=== PATIENT | male | born 1945 | race Caucasian/White ===

== ENCOUNTER 2016-07-06 21:28 | Inpatient (IN) | payer BC, MEDICARE ==
[~2016-07-06] VITALS: Ht 182.9 cm; Wt 112.8 kg
[2016-07-06 21:32] VITALS: BP 133/74; PULSE 104; RESP 20; TEMP 97.7; O2SAT 94
[2016-07-06 21:51] VITALS: BP 101/63; PULSE 114; RESP 20; O2SAT 97
[2016-07-06] MEDS ORDERED: SODIUM CHLORIDE 0.9% FLUSH 5 ML FLUSH IVF PRN (22:00)
--- NOTE | 2016-07-06 22:05 | PD ---
HPI Chief Complaint: Cardiac Complaint Time Seen by Provider: 21:58 Travel History International Travel<30 days: No Contact w/Intl Traveler<30days: No Traveled to known affect area: No History of Present Illness HPI 70-year-old male presents to the emergency department for complaint of abdominal pressure 3-4/10 in intensity and shortness of breath. Patient has history of atrial fibrillation which she states is been well-controlled for the past 5 years but has been present for the past 2 weeks. Patient takes Coumadin daily. Patient denies chest pain. Patient has had shortness of breath. Patient's rotary peel oven tender is Dr. Akbar. Patient was seen by his rotary peel oven tender today for an echocardiogram. Patient also had a PET scan today. Patient has history of peripheral vascular disease with previous stenting of lower extremities bilaterally. Patient's last cardiac catheterization was May 2015 and reportedly had better looking coronary vessel disease than on previous cardiac catheterization according to the . Patient denies history of dyslipidemia hypertension or diabetes. Patient denies chest pain. Chest discomfort is 0/10 in intensity. No recent respiratory illness or febrile illness. No thyroid dysfunction. Patient does not report any referred neck jaw back shoulder arm lower back or lower extremity numbness tingling weakness pain or discomfort. PFSH Past Medical History Narrative Medical CAD atrial fibrillation Coumadin therapy Hx Anticoagulant Therapy: Yes (COUMADIN) Social History Tobacco Use: No Allergies-Medications (Allergen,Severity, Reaction): Coded Allergies: No Known Allergies (Unverified , 07/06/16) Comments Patient denies any medication allergies Reported Meds & Prescriptions Reported Meds & Active Scripts Active Reported Pravastatin 40 Mg Tab 40 Mg PO DAILY Amlodipine (Amlodipine Besylate) 10 Mg Tab 10 Mg PO DAILY Losartan (Losartan Potassium) 50 Mg Tab 50 Mg PO DAILY Coumadin (Warfarin) 6 Mg Tab 6 Mg PO DAILY Amoxicillin-Clavulanate 875-125 mg Tab 875 Mg PO BID not for use in CrCl <30 mL/minute Sotalol (AF) (Sotalol (Afib/Afl)) 80 Mg Tab 80 Mg PO BID Narrative Medication Coumadin Review of Systems Except as stated in HPI: all other systems reviewed are Neg Physical Exam Narrative GENERAL: Well-developed well-nourished male in no acute distress no respiratory distress SKIN: Warm and dry. HEAD: Normocephalic. EYES: No scleral icterus. No injection or drainage. NECK: Supple, trachea midline. No JVD or lymphadenopathy. CARDIOVASCULAR: Increased irregular irregular rate and rhythm without murmurs, gallops, or rubs. RESPIRATORY: Breath sounds equal bilaterally. No accessory muscle use. GASTROINTESTINAL: Abdomen soft, non-tender, nondistended. MUSCULOSKELETAL: No cyanosis, or trace to 1+ pitting pedal lower pretibial edema. Radial dorsalis pedis pulses 2+ to palpation bilaterally BACK: Nontender without obvious deformity. No CVA tenderness. Data Data Last Documented VS Vital Signs Date Time Temp Pulse Resp B/P Pulse Ox O2 Delivery O2 Flow Rate FiO2 07/07/16 00:41 94 20 138/82 98 07/06/16 22:12 Nasal Cannula 2 07/06/16 21:32 97.7 Orders Complete Blood Count With Diff (07/06/16 21:58) Comprehensive Metabolic Panel (07/06/16 21:58) B-Type Natriuretic Peptide (07/06/16 21:58) Act Partial Throm Time (Ptt) (07/06/16 21:58) Prothrombin Time / Inr (Pt) (07/06/16 21:58) Magnesium (Mg) (07/06/16 21:58) Ckmb (Isoenzyme) Profile (07/06/16 21:58) Troponin I (07/06/16 21:58) Iv Access Insert/Monitor (07/06/16 21:58) Electrocardiogram (07/06/16 21:58) Ecg Monitoring (07/06/16 21:58) Oximetry (07/06/16 21:58) Oxygen Administration (07/06/16 21:58) Chest, Single Ap (07/06/16 21:58) Sodium Chloride 0.9% Flush (Ns Flush) (07/06/16 22:00) Type And Screen (07/06/16 21:58) Bilateral Bp Monitoring (07/06/16 21:58) Cta Thor Abd Aorta W Iv C W3d (07/06/16 21:58) Iohexol 350 Inj (Omnipaque 350 Inj) (07/06/16 23:36) Urinalysis - C+S If Indicated (07/07/16 00:18) Potassium Chloride (Kcl) (07/07/16 00:30) Admit Order (Ed Use Only) (07/07/16 ) ^ Saline Lock (07/07/16 00:41) Resp Oxygen Alvarado C Titrat 1-4 L (07/07/16 ) ^ Notify Dr: Other (07/07/16 00:41) Sodium Chloride 0.9% Flush (Ns Flush) (07/07/16 09:00) Sodium Chloride 0.9% Flush (Ns Flush) (07/07/16 00:45) Labs Laboratory Tests Test 07/06/16 22:06 White Blood Count 12.0 TH/MM3 Red Blood Count 3.96 MIL/MM3 Hemoglobin 12.9 GM/DL Hematocrit 38.0 % Mean Corpuscular Volume 96.0 FL Mean Corpuscular Hemoglobin 32.6 PG Mean Corpuscular Hemoglobin 34.0 % Concent Red Cell Distribution Width 13.5 % Platelet Count 282 TH/MM3 Mean Platelet Volume 8.8 FL Neutrophils (%) (Auto) 73.7 % Lymphocytes (%) (Auto) 17.2 % Monocytes (%) (Auto) 7.0 % Eosinophils (%) (Auto) 1.5 % Basophils (%) (Auto) 0.6 % Neutrophils # (Auto) 8.8 TH/MM3 Lymphocytes # (Auto) 2.1 TH/MM3 Monocytes # (Auto) 0.8 TH/MM3 Eosinophils # (Auto) 0.2 TH/MM3 Basophils # (Auto) 0.1 TH/MM3 CBC Comment DIFF FINAL Differential Comment Prothrombin Time 37.7 SEC Prothromb Time International 3.2 RATIO Ratio Activated Partial 39.7 SEC Thromboplast Time Sodium Level 144 MEQ/L Potassium Level 3.3 MEQ/L Chloride Level 108 MEQ/L Carbon Dioxide Level 27.6 MEQ/L Anion Gap 8 MEQ/L Blood Urea Nitrogen 20 MG/DL Creatinine 0.93 MG/DL Estimat Glomerular Filtration 80 ML/MIN Rate Random Glucose 127 MG/DL Calcium Level 7.9 MG/DL Magnesium Level 2.2 MG/DL Total Bilirubin 0.5 MG/DL Aspartate Amino Transf 13 U/L (AST/SGOT) Alanine Aminotransferase 32 U/L (ALT/SGPT) Alkaline Phosphatase 57 U/L Total Creatine Kinase 48 U/L Troponin I LESS THAN 0.02 NG/ML B-Type Natriuretic Peptide 401 PG/ML Total Protein 6.8 GM/DL Albumin 3.4 GM/DL Blood Type A NEGATIVE Antibody Screen NEGATIVE Blood Bank Comment MDM Medical Decision Making Medical Screen Exam Complete: Yes Emergency Medical Condition: Yes Medical Record Reviewed: Yes Interpretation(s) EKG: Atrial fibrillation with rapid ventricular response and left bundle branch block pattern Last Impressions Chest X-Ray 07/06/162157 Signed Impressions: Service Date/Time: Wednesday, July 06, 2016 22:13 - CONCLUSION: 1. Minimal basilar atelectasis. Edison Finch MD Aorta CTA 07/06/162157 Signed Impressions: Service Date/Time: Wednesday, July 06, 2016 23:19 - CONCLUSION: 1. No evidence of aortic dissection or aneurysmal dilatation. 2. Atherosclerotic changes are seen throughout the aorta. 3. A few nonspecific nodules in the right lobe of the thyroid. 4. Bilateral iliac vein stents. 5. Bullous emphysema with a very small right effusion versus pleural thickening. Dominguez Valenzuela MD Laboratory Tests Test 07/06/16 22:06 White Blood Count 12.0 TH/MM3 Red Blood Count 3.96 MIL/MM3 Hemoglobin 12.9 GM/DL Hematocrit 38.0 % Mean Corpuscular Volume 96.0 FL Mean Corpuscular Hemoglobin 32.6 PG Mean Corpuscular Hemoglobin 34.0 % Concent Red Cell Distribution Width 13.5 % Platelet Count 282 TH/MM3 Mean Platelet Volume 8.8 FL Neutrophils (%) (Auto) 73.7 % Lymphocytes (%) (Auto) 17.2 % Monocytes (%) (Auto) 7.0 % Eosinophils (%) (Auto) 1.5 % Basophils (%) (Auto) 0.6 % Neutrophils # (Auto) 8.8 TH/MM3 Lymphocytes # (Auto) 2.1 TH/MM3 Monocytes # (Auto) 0.8 TH/MM3 Eosinophils # (Auto) 0.2 TH/MM3 Basophils # (Auto) 0.1 TH/MM3 CBC Comment DIFF FINAL Differential Comment Prothrombin Time 37.7 SEC Prothromb Time International 3.2 RATIO Ratio Activated Partial 39.7 SEC Thromboplast Time Sodium Level 144 MEQ/L Potassium Level 3.3 MEQ/L Chloride Level 108 MEQ/L Carbon Dioxide Level 27.6 MEQ/L Anion Gap 8 MEQ/L Blood Urea Nitrogen 20 MG/DL Creatinine 0.93 MG/DL Estimat Glomerular Filtration 80 ML/MIN Rate Random Glucose 127 MG/DL Calcium Level 7.9 MG/DL Magnesium Level 2.2 MG/DL Total Bilirubin 0.5 MG/DL Aspartate Amino Transf 13 U/L (AST/SGOT) Alanine Aminotransferase 32 U/L (ALT/SGPT) Alkaline Phosphatase 57 U/L Total Creatine Kinase 48 U/L Troponin I LESS THAN 0.02 NG/ML B-Type Natriuretic Peptide 401 PG/ML Total Protein 6.8 GM/DL Albumin 3.4 GM/DL Blood Type A NEGATIVE Antibody Screen NEGATIVE Blood Bank Comment Differential Diagnosis Dyspnea, CHF, atrial fibrillation with RVR, ACS, OH, aortic dissection, Coumadin coagulopathy, aneurysm Narrative Course Patient placed on front desk monitor IV access obtained supplemental oxygen administered; patient with marked blood pressure variance right arm to left arm. Patient resting comfortably voicing no concerns or complaints denies any shortness of breath at this time atrial fibrillation is intermittently with RVR but primarily remains with a controlled rate CT performed without evidence of dissection or aneurysm or acute process Patient's case discussed with on-call medicine for observation admission for serial cardiac enzymes Patient agreeable to observation stay Physician Communication Physician Communication discussed with [facility] service MD --will admit to their service as OBS Diagnosis Primary Impression: Atrial fibrillation Qualified Code: I48.0 - Paroxysmal atrial fibrillation Additional Impression: Chronic coronary artery disease Admitting Information Admitting Physician Requests: Observation Heather Garcia MD Jul 06, 2016 22:05
[2016-07-06 22:10] VITALS: BP 104/78; PULSE 114; RESP 20; O2SAT 98
[2016-07-06 22:12] VITALS: BP_SYST 104; BP_SYST 135; BP_DIAS 78; BP_DIAS 84; PULSE 114; RESP 20; O2SAT 98
[2016-07-06] MEDS ORDERED: PRAV40TA2 PO (22:23)
[2016-07-06] MEDS ORDERED: AMLO10TA2 PO (22:23)
[2016-07-06] MEDS ORDERED: SOTA80TA6 PO (22:23)
[2016-07-06] MEDS ORDERED: LOSA50TA PO (22:23)
[2016-07-06] MEDS ORDERED: COUM6TAB PO (22:23)
[2016-07-06] MEDS ORDERED: AMOX875T2 PO (22:23)
[2016-07-06 22:28] LABS: AUTOMATED NEUTROPHIL # 8.8 TH/MM3 (1.8-7.7); BASOPHIL # 0.1 TH/MM3 (0-0.2); BASOPHIL % 0.6 % (0.0-2.0); EOSINOPHIL # 0.2 TH/MM3 (0-0.4); EOSINOPHIL % 1.5 % (0.0-4.0); HEMO FLAGS DIFF FINAL; LYMPH % 17.2 % (9.0-44.0); LYMPHOCYTE # 2.1 TH/MM3 (1.0-4.8); MEAN CORPUSCULAR HEMOGLOBIN 32.6 PG (27.0-34.0); NEUT % 73.7 % (16.0-70.0); PLATELET COUNT 282 TH/MM3 (150-450); RED BLOOD COUNT 3.96 MIL/MM3 (4.50-5.90); RED CELL DISTRIBUTION WIDTH 13.5 % (11.6-17.2)
[2016-07-06 22:32] LABS: CHLORIDE 108 MEQ/L (98-107); POTASSIUM 3.3 MEQ/L (3.5-5.1); SODIUM (NA) 144 MEQ/L (136-145)
[2016-07-06 22:37] LABS: ANION GAP 8 MEQ/L (5-15); BICARBONATE 27.6 MEQ/L (21.0-32.0); BLOOD UREA NITROGEN 20 MG/DL (7-18); MAGNESIUM 2.2 MG/DL (1.5-2.5)
[2016-07-06 22:38] LABS: APTT (PATIENT) 39.7 SEC (24.3-30.1); INTERNATIONAL NORMALIZED RATIO 3.2 RATIO; PROTHROMBIN TIME - PATIENT 37.7 SEC (9.8-11.6)
[2016-07-06 22:39] LABS: ALT (GPT) 32 U/L (12-78)
[2016-07-06 22:40] LABS: AST (GOT) 13 U/L (15-37); GLOMERULAR FILTRATION RATE 80 ML/MIN (>89)
[2016-07-06 22:41] LABS: TOTAL BILIRUBIN ADULT 0.5 MG/DL (0.2-1.0)
[2016-07-06 22:42] VITALS: BP 137/91; PULSE 114; RESP 20; O2SAT 98
[2016-07-06 22:42] LABS: ALKALINE PHOSPHATASE 57 U/L (45-117)
--- NOTE | 2016-07-06 22:53 | RADHPO ---
EXAM DATE/TIME: 07/06/2016 22:13 [facility] COMPARISON: No previous studies available for comparison. INDICATIONS : Atrial fibrillation MEDICAL HISTORY : Atrial fibrillation SURGICAL HISTORY : None. ENCOUNTER: Initial ACUITY: 1 week PAIN SCORE: 2/10 LOCATION: Bilateral chest FINDINGS: A single view of the chest demonstrates minimal basilar and dependent atelectasis. No effusion. No pn eumothorax. The cardiomediastinal contours are unremarkable. Osseous structures are intact. CONCLUSION: 1. Minimal basilar atelectasis. Edison Finch MD on July 06, 2016 at 22:51 Board Certified Radiologist. This report was verified electronically.
[2016-07-06 22:54] LABS: CREATINE KINASE 48 U/L (39-308)
[2016-07-06 23:12] VITALS: BP 149/81; PULSE 61; RESP 20; O2SAT 98
[2016-07-06] MEDS ORDERED: IOHEXOL 350 MG/ML 10 ML VIAL (for RAD DIAG) IV ONE (23:36)
[2016-07-07] VITALS (17 sets, daily range): BP systolic 92–145; BP diastolic 66–90; PULSE 70–115; RESP 16–20; TEMP 96.2–97.6; O2SAT 94–99
--- NOTE | 2016-07-07 00:15 | RADHPO ---
EXAM DATE/TIME: 07/06/2016 23:19 [facility] COMPARISON: No previous studies available for comparison. INDICATIONS : Evalaute for aortic dissection. IV CONTRAST: 100 cc Omnipaque 350 (iohexol) IV RADIATION DOSE: 22.57 CTDIvol (mGy) MEDICAL HISTORY : Hypertension. Atrial fibrilation. SURGICAL HISTORY : Illiac vein stent. ENCOUNTER: Initial ACUITY: 1 day PAIN SCALE: 0/10 LOCATION: chest Abdomen. TECHNIQUE: Volumetric scanning was performed using a multi-row detector CT scanner. The data was post processed with a variety of visualization algorithms including full volume maximum intensity projection, multi -planar sliding thin slab reformation, curved planar reformation, and surface rendering techniques. Using automated exposure control and adjustment of the mA and/or kV according to patient size, radiat ion dose was kept as low as reasonably achievable to obtain optimal diagnostic quality images. FINDINGS: LUNGS: There is bullous emphysema in both apices. No acute pulmonary infiltrates are seen. There is some ple ural thickening versus small effusion in the right lung base. MEDIASTINUM: No abnormally enlarged lymph nodes by CT criteria. No axillary or hilar abnormalities are identified. A few nonspecific nodules are noted in the right thyroid gland. ABDOMEN: The liver and spleen are free of focal defects. The gallbladder and pancreas demonstrate no abnormali ty. The adrenal glands are normal. The kidneys demonstrate no evidence of solid renal mass or hydrone phrosis. No free fluid or abdominal masses are identified. No para-aortic adenopathy is seen. PELVIS: No evidence of free fluid or pelvic mass. No abnormally enlarged inguinal or retroperitoneal lymph no matthew are present. The bladder is unremarkable. Bilateral stents are noted in the iliac veins. THORACIC AORTA: The thoracic aortic root is normal with normal branching of the great vessels. There is no evidence of aneurysm or dissection. A few small calcified plaques are noted. ABDOMINAL AORTA: The aorta is normal in caliber without aneurysm or dissection. A few small calcified plaques are demo nstrated. The renal arteries are patent bilaterally. The proximal celiac and superior mesenteric ar teries are patent and normal in diameter. PELVIC VESSELS: The internal iliac and external iliac vessels are patent with some atherosclerotic changes bilaterall y. No significant stenosis or segmental occlusion. Primary degenerative changes of the bony structures.. CONCLUSION: 1. No evidence of aortic dissection or aneurysmal dilatation. 2. Atherosclerotic changes are seen throughout the aorta. 3. A few nonspecific nodules in the right lobe of the thyroid. 4. Bilateral iliac vein stents. 5. Bullous emphysema with a very small right effusion versus pleural thickening. Dominguez Valenzuela MD on July 07, 2016 at 0:05 Board Certified Radiologist. This report was verified electronically.
[2016-07-07] MEDS ORDERED: POTASSIUM CHLORIDE 20 MEQ CONTROLLED RELEASE TAB PO ONE (00:30)
[2016-07-07] MEDS ORDERED: SODIUM CHLORIDE 0.9% FLUSH 5 ML FLUSH IVF PRN (00:45)
[2016-07-07] MEDS ORDERED: NALOXONE HCL 0.4 MG/ML AMP IV PRN (01:15)
[2016-07-07] MEDS: DOCUSATE SODIUM 100 MG CAP PO SCH ×2 (01:15→12:35)
[2016-07-07 02:20] LABS: BLOOD, URINE NEG (NEG); GLUCOSE,URINE NEG (NEG); KETONE, URINE NEG (NEG); NITRITE,URINE NEG (NEG); PH, URINE 5.5 (5.0-8.5)
[2016-07-07 02:39] LABS: METHOD OF COLLECTION CLEAN CATCH; URINE COLOR YELLOW (YELLW/STRAW)
[2016-07-07 02:40] LABS: MUCUS URINE OCC /lpf (OCC)
[2016-07-07 02:41] LABS: COMMENT (UR) CULT NOT INDICATED; CULTURE IF INDICATED CULT NOT INDICATED; SQUAMOUS EPITHELIAL CELL URINE 0-5 /hpf (0-5)
[2016-07-07 06:26] LABS: INTERNATIONAL NORMALIZED RATIO 3.3 RATIO; PROTHROMBIN TIME - PATIENT 37.9 SEC (9.8-11.6)
[2016-07-07 07:55] LABS: CHLORIDE 107 MEQ/L (98-107); POTASSIUM 4.1 MEQ/L (3.5-5.1); SODIUM (NA) 143 MEQ/L (136-145)
[2016-07-07 07:59] LABS: ANION GAP 7 MEQ/L (5-15); BICARBONATE 29.4 MEQ/L (21.0-32.0); BLOOD UREA NITROGEN 18 MG/DL (7-18)
[2016-07-07 08:02] LABS: ALT (GPT) 29 U/L (12-78); AST (GOT) 8 U/L (15-37); GLOMERULAR FILTRATION RATE 85 ML/MIN (>89)
[2016-07-07 08:03] LABS: TOTAL BILIRUBIN ADULT 0.4 MG/DL (0.2-1.0)
[2016-07-07 08:05] LABS: ALKALINE PHOSPHATASE 56 U/L (45-117)
[2016-07-07] MEDS ORDERED: SODIUM CHLORIDE 0.9% FLUSH 5 ML FLUSH IVF SCH (09:00)
[2016-07-07] MEDS: LOSARTAN 50 MG TAB PO SCH (09:25)
[2016-07-07] MEDS: SOTALOL HCL 80 MG TAB PO SCH ×2 (09:25→19:51)
[2016-07-07] MEDS: PRAVASTATIN SOD 40 MG TAB PO SCH (09:25)
[2016-07-07] MEDS: SODIUM CHLORIDE 0.9% FLUSH 5 ML FLUSH FLUSH SCH ×2 (09:26→19:52)
--- NOTE | 2016-07-07 12:21 | HHI.HP ---
[facility] Service [facility] Primary Care Physician No Primary Care Physician Admission Diagnosis afib w/rvr; h/o cad Diagnoses: Travel History International Travel<30 Days: No Contact w/Intl Traveler <30 Da: No Traveled to Known Affected Are: No History of Present Illness This is a 70-year-old male with past medical history of paroxysmal atrial fibrillation, peripheral vascular disease who presented to the ER last night complaining of shortness of breath ongoing for 1 month. History is obtained from the patient and his . The patient states he injured his back one month ago where he works at [employer] and has been seeing a workman's comp physician who ordered an MRI which showed he had bulging disks and L2 to L3. It was the physician who stated that he seemed like he was in A. fib, the patient then went to go see an title curative specialist Dr. Garcia in [place] for the afib. The patient states his Sotalol was increased by Dr. Garcia around the beginning of the month. This did not help his symptoms and he has still continued to be short of breath, tired and occasionally gets palpitations. Dr. Garcia then ordered echocardiogram stress test and cardiac PET scan which the patient states that he got done yesterday, but did not see his durability technician during that visit. The patient also complained of some abdominal pressure yesterday. However he has denied any chest pain or chest pressure. He just gets dyspneic with exertion. Denies any cough or fever. Laying flat makes his shortness of breath worse and resting makes it better. He has chronic pedal edema but denies any increased edema. He came to the ER because he states driving home from [place] he started to feel worse and worse more short of breath and was dissatisfied with the workup and so he presented to the ER. He did smoke for about 10 years and his first was a heavy smoker and from lung cancer. His brother also from lung cancer several years ago and so he has been worried about that. In the emergency department he had unequal blood pressure and so a CTA the aorta was obtained which was negative for aortic dissection but did show bullous emphysema. The patient denies history of any stents or coronary artery disease. The patient and his are convinced since that he is short of breath from the A. fib. He did have a cardioversion performed about 10 years ago but has never had an ablation. He has not established with a primary care physician. He also states that he lives in [place] and is tired of going over to [place] where his durability technician is. The patient has chronic pedal edema in the lower extremities and has had endovascular procedures for circulation in his lower extremities as well as bilateral iliac vein stents for the pedal edema. Review of Systems Constitutional: DENIES: Fever, Chills Respiratory: COMPLAINS OF: Shortness of breath, DENIES: Cough, Wheezing, Hemoptysis, Sputum production Cardiovascular: COMPLAINS OF: Palpitations, Dyspnea on Exertion, PND, Lower Extremity Edema, DENIES: Chest pain Gastrointestinal: DENIES: Abdominal pain, Vomiting Genitourinary: DENIES: Hematuria, Dysuria Musculoskeletal: COMPLAINS OF: Back pain, DENIES: Neck pain Integumentary: DENIES: Pruritus, Rash Hematologic/lymphatic: DENIES: Lymphadenopathy Neurologic: DENIES: Abnormal gait, Headache Psychiatric: DENIES: Anxiety, Confusion Past Family Social History Past Medical History Paroxysmal Atrial fibrillation Hypertension Hyperlipidemia Stents to the bilateral lower extremities Past Surgical History Bilateral iliac vein stents Reported Medications Allergies Coded Allergies Type Severity Reaction Last Updated Verified No Known Allergies 07/06/16 No Active Scripts Medications Dose Route/Sig Days Date Category Dose Instructions Pravastatin 40 Mg Tab 40 Mg PO DAILY 07/06/16 Reported Amlodipine (Amlodipine Besylate) 10 Mg Tab 10 Mg PO DAILY 07/06/16 Reported Losartan (Losartan Potassium) 50 Mg Tab 50 Mg PO DAILY 07/06/16 Reported Coumadin (Warfarin) 6 Mg Tab 6 Mg PO DAILY 07/06/16 Reported Amoxicillin-Clavulanate 875-125 mg Tab 875 Mg PO BID 07/06/16 Reported not for use in CrCl <30 mL/minute Sotalol (AF) (Sotalol (Afib/Afl)) 80 Mg Tab 80 Mg PO BID 07/06/16 Reported Allergies: Coded Allergies: No Known Allergies (Unverified , 07/06/16) Family History As per history of present illness. Social History As per history of present illness. The patient denies alcohol use. Physical Exam Vital Signs Vital Signs Date Time Temp Pulse Resp B/P Pulse Ox O2 Delivery O2 Flow Rate FiO2 07/07/16 09:00 96.2 101 18 128/78 98 07/07/16 07:20 97.6 94 16 127/73 99 07/07/16 07:20 94 07/07/16 07:15 97 Nasal Cannula 2.00 07/07/16 05:41 85 20 124/82 96 07/07/16 04:41 70 20 112/66 96 07/07/16 03:41 82 20 133/77 97 07/07/16 02:41 100 20 127/72 98 07/07/16 01:41 110 20 145/90 95 07/07/16 01:07 98 Nasal Cannula 2.00 07/07/16 00:41 94 20 138/82 98 07/06/16 23:12 61 20 149/81 98 07/06/16 22:42 114 20 137/91 98 07/06/16 22:23 104 20 98 07/06/16 22:12 114 20 104/78 98 Nasal Cannula 2 135/84 07/06/16 22:10 98 Nasal Cannula 2 07/06/16 22:10 114 20 104/78 98 2 07/06/16 21:51 114 20 101/63 97 07/06/16 21:32 97.7 104 20 133/74 94 Physical Exam GENERAL: Well-nourished, well-developed pleasant male patient. SKIN: Warm and dry. HEAD: Normocephalic. EYES: No scleral icterus. No injection or drainage. NECK: Supple, trachea midline. No JVD or lymphadenopathy. CARDIOVASCULAR: Regular rate and rhythm without murmurs, gallops, or rubs. RESPIRATORY: Nonlabored breathing on room air. Lungs are clear to auscultation bilaterally. No accessory muscle use. GASTROINTESTINAL: Abdomen soft, non-tender, nondistended. EXTREMITIES: No cyanosis, or edema. NEUROLOGICAL: Awake, alert, and oriented x 3. Non-focal. Laboratory Laboratory Tests Test 07/06/16 07/07/16 07/07/16 07/07/16 22:06 01:30 02:00 06:10 White Blood Count 12.0 Red Blood Count 3.96 Hemoglobin 12.9 Hematocrit 38.0 Mean Corpuscular Volume 96.0 Mean Corpuscular Hemoglobin 32.6 Mean Corpuscular Hemoglobin 34.0 Concent Red Cell Distribution Width 13.5 Platelet Count 282 Mean Platelet Volume 8.8 Neutrophils (%) (Auto) 73.7 Lymphocytes (%) (Auto) 17.2 Monocytes (%) (Auto) 7.0 Eosinophils (%) (Auto) 1.5 Basophils (%) (Auto) 0.6 Neutrophils # (Auto) 8.8 Lymphocytes # (Auto) 2.1 Monocytes # (Auto) 0.8 Eosinophils # (Auto) 0.2 Basophils # (Auto) 0.1 CBC Comment DIFF FINAL Differential Comment Prothrombin Time 37.7 37.9 Prothromb Time International 3.2 3.3 Ratio Activated Partial 39.7 Thromboplast Time Sodium Level 144 Potassium Level 3.3 Chloride Level 108 Carbon Dioxide Level 27.6 Anion Gap 8 Blood Urea Nitrogen 20 Creatinine 0.93 Estimat Glomerular Filtration 80 Rate Random Glucose 127 Calcium Level 7.9 Magnesium Level 2.2 Total Bilirubin 0.5 Aspartate Amino Transf 13 (AST/SGOT) Alanine Aminotransferase 32 (ALT/SGPT) Alkaline Phosphatase 57 Total Creatine Kinase 48 Troponin I LESS THAN 0.02 LESS THAN 0.02 B-Type Natriuretic Peptide 401 Total Protein 6.8 Albumin 3.4 Blood Type A NEGATIVE Antibody Screen NEGATIVE Blood Bank Comment Urine Collection Type CLEAN CATCH Urine Color YELLOW Urine Turbidity CLEAR Urine pH 5.5 Urine Specific Duncan GREATER THAN 1.035 Urine Protein NEG Urine Glucose (UA) NEG Urine Ketones NEG Urine Occult Blood NEG Urine Nitrite NEG Urine Bilirubin NEG Urine Leukocyte Esterase NEG Urine Squamous Epithelial 0-5 Cells Urine Mucus OCC Microscopic Urinalysis Comment CULT NOT INDICATED Test 07/07/16 07:43 Sodium Level 143 Potassium Level 4.1 Chloride Level 107 Carbon Dioxide Level 29.4 Anion Gap 7 Blood Urea Nitrogen 18 Creatinine 0.89 Estimat Glomerular Filtration 85 Rate Random Glucose 106 Calcium Level 8.3 Total Bilirubin 0.4 Aspartate Amino Transf 8 (AST/SGOT) Alanine Aminotransferase 29 (ALT/SGPT) Alkaline Phosphatase 56 Troponin I LESS THAN 0.02 Total Protein 6.6 Albumin 3.4 Lipase 131 Result Diagram: 07/06/16220507/07/16 0743 Imaging Last Impressions Chest X-Ray 07/06/162157 Signed Impressions: Service Date/Time: Wednesday, July 06, 2016 22:13 - CONCLUSION: 1. Minimal basilar atelectasis. Edison Finch MD Aorta CTA 07/06/16 2158 Signed Impressions: Service Date/Time: Wednesday, July 06, 2016 23:19 - CONCLUSION: 1. No evidence of aortic dissection or aneurysmal dilatation. 2. Atherosclerotic changes are seen throughout the aorta. 3. A few nonspecific nodules in the right lobe of the thyroid. 4. Bilateral iliac vein stents. 5. Bullous emphysema with a very small right effusion versus pleural thickening. Dominguez Valenzuela MD Assessment and Plan Assessment and Plan -Dyspnea 1 month. I doubt that this can be explained by the atrial fibrillation. CTA of the aorta shows bolus emphysema. He's had extensive cardiac workup done in the past several days. I discussed with his durability technician Dr. Garcia who states he did read the results but cannot remember them off the top of his head and he was driving, therefore I have requested those records from Dr. Garcia's office. I will also order a chest CT to better evaluate his lungs. In the meantime I've ordered due to an absent, one-time dose of Solu-Medrol and Lasix. I will check an ambulatory pulse ox. I am not ordering a CTA of the lungs because his INR is therapeutic and I think a pulmonary embolism is unlikely. I discussed in detail with the patient and his and encouraged them to get established with a primary care physician in the area as they seem to have some frustration at having to drive over to [place] and over the time it is taking for them to get an answer regarding his dyspnea. -If cardiac workup is negative, and the patient is feeling better, he may be discharged home with outpatient follow-up with primary care physician and pulmonology refferal. Joanne Blanco MD Jul 07, 2016 12:21
--- NOTE | 2016-07-07 12:34 | HHI.FF ---
Face to Face Verification Diagnosis: (1) Atrial fibrillation (2) Bullous emphysema (3) Pleural effusion, right Physical Therapy Order: Evaluate and Treat Home Health Nursing Order: Medical education Oxygen administration education Wound care and dressing changes Nursing assessment with vital signs I have seen patient Davide Ansari Jr June on 07/07/16. My clinical findings support the need for the requested home health care services because: Patient has SOB Need for psychosocial assistance I certify that my clinical findings support that this patient is homebound because: Hx COPD- exertion dyspnea/weakness Need for psychosocial assistance Joanne Blanco MD Jul 07, 2016 12:34
[2016-07-07] MEDS ORDERED: NEBULIZER1 MI1 (12:36)
[2016-07-07] MEDS ORDERED: VENTAER INH (12:36)
[2016-07-07] MEDS ORDERED: RESP: ALBUTEROL 2.5 MG/IPRATROPIUM 0.5 MG NEB (PRN) NEB (12:45)
[2016-07-07] MEDS ORDERED: methylPREDNISolone SOD SUCC 125 MG/2 ML VIAL IV PUSH ONE (13:00)
[2016-07-07] MEDS: SODIUM CHLORIDE 0.9% FLUSH 5 ML FLUSH FLUSH PRN ×2 (13:45→15:17)
[2016-07-07] MEDS ORDERED: FUROSEMIDE 40 MG/4 ML VIAL IV PUSH ONE (15:00)
[2016-07-07] MEDS: RESP: ALBUTEROL 2.5 MG/IPRATROPIUM 0.5 MG NEB (SCH) NEB ×2 (16:25→19:41)
--- NOTE | 2016-07-07 18:18 | EKG ---
Date Performed: 07/06/2016 Time Performed: 22:58:58 PTAGE: 70 years EKG: Atrial fibrillation Leftward axis Left bundle branch block Possible lateral infarct - age u ndetermined When compared to previous tracing, the patient is no longer Tachycardic. Abnormal ECG PREVIOUS TRACING : 07/06/2016 21.45 DOCTOR: Amy Sierra Interpretating Date/Time 07/07/2016 18:17:40
--- NOTE | 2016-07-07 18:18 | EKG ---
Date Performed: 07/06/2016 Time Performed: 21:45:00 PTAGE: 70 years EKG: Atrial fibrillation with rapid ventricular response Left bundle branch block Abnormal ECG NO PREVIOUS TRACING DOCTOR: Amy Sierra Interpretating Date/Time 07/07/2016 18:16:49
--- NOTE | 2016-07-07 18:19 | EKG ---
Date Performed: 07/07/2016 Time Performed: 05:52:18 PTAGE: 70 years EKG: Atrial fibrillation with PVC(s) or aberrant ventricular conduction Left axis deviation Left bundle branch block Since previous tracing, no significant change noted Abnormal ECG PREVIOUS TRACING : 07/06/2016 22.58 DOCTOR: Amy Sierra Interpretating Date/Time 07/07/2016 18:17:53
--- NOTE | 2016-07-07 21:10 | RADHPO ---
EXAM DATE/TIME: 07/07/2016 20:20 [place] COMPARISON: CTA THORACIC ABDOMINAL AORTA W 3D RECON, July 06, 2016, 23:19. INDICATIONS : Bullous emphysema with a very small right effusion versus pleural thickening. Shortness of breath. RADIATION DOSE: 24.53 CTDIvol (mGy) MEDICAL HISTORY : Hypertension. Atrial fibrilation. SURGICAL HISTORY : Illiac vein stent. ENCOUNTER: Initial ACUITY: 2 days PAIN SCALE: 0/10 LOCATION: chest TECHNIQUE: Volumetric scanning of the chest was performed. Using automated exposure control and adjustment of t he mA and/or kV according to patient size, radiation dose was kept as low as reasonably achievable to obtain optimal diagnostic quality images. FINDINGS: LUNGS: Bullous emphysematous changes are noted. Mild passive atelectasis involving the right lower lobe yasmeen cent to the small effusion. Linear atelectasis involving the lingula adjacent to the major fissure. N o infiltrates. PLEURAE: A small right pleural effusion which is slightly larger from the earlier study. A tiny left effusion. MEDIASTINUM: Macro mediastinal calyx. A 1.8 x 1.5 cm precarinal lymph node is noted. Scattered mildly enlarged lym ph nodes are seen involving the prevascular space of the anterior mediastinum. AXILLAE: Within normal limits. No lymphadenopathy. MUSCULOSKELETAL: Within normal limits for patient age. MISCELLANEOUS: The visualized upper abdominal organs demonstrate no acute abnormality. CONCLUSION: 1. Tiny left and small right pleural effusions. The right is slightly larger from the prior study. 2. Bullous emphysematous changes. 3. Mild mediastinal adenopathy. 4. Coronary artery atherosclerotic calcifications. Ant Candelario Jr., MD on July 07, 2016 at 21:05 Board Certified Radiologist. This report was verified electronically.
[2016-07-08] VITALS (10 sets, daily range): BP systolic 92–138; BP diastolic 66–107; PULSE 90–144; RESP 16–18; TEMP 96.1–97.8; O2SAT 95–99
[2016-07-08] MEDS: DOCUSATE SODIUM 100 MG CAP PO SCH ×2 (01:15→13:15)
[2016-07-08 06:43] LABS: INTERNATIONAL NORMALIZED RATIO 3.5 RATIO; PROTHROMBIN TIME - PATIENT 40.8 SEC (9.8-11.6)
[2016-07-08] MEDS: RESP: ALBUTEROL 2.5 MG/IPRATROPIUM 0.5 MG NEB (SCH) NEB ×4 (07:49→19:35)
[2016-07-08] MEDS: SOTALOL HCL 80 MG TAB PO SCH (08:35)
[2016-07-08] MEDS: FUROSEMIDE 40 MG TAB PO SCH (08:35)
[2016-07-08] MEDS: PRAVASTATIN SOD 40 MG TAB PO SCH (08:36)
[2016-07-08] MEDS: LOSARTAN 50 MG TAB PO SCH (08:36)
[2016-07-08] MEDS: SODIUM CHLORIDE 0.9% FLUSH 5 ML FLUSH FLUSH SCH ×2 (08:40→21:21)
[2016-07-08] MEDS ORDERED: INFLUENZA VIRUS VACCINE (QUADRIVALENT) 0.5 ML SYR IM ONE (10:00)
[2016-07-08] MEDS ORDERED: IPRASOL INH (10:43)
[2016-07-08] MEDS ORDERED: OXYGENTANK NAS.CANULA (10:43)
[2016-07-08] MEDS ORDERED: TIOT1AER2 INH (10:43)
[2016-07-08] MEDS ORDERED: FURO1TAB60 PO (13:00)
[2016-07-08] MEDS ORDERED: FUROSEMIDE 20 MG/2 ML VIAL IV PUSH ONE (13:00)
[2016-07-08] MEDS ORDERED: POTA-163 PO (13:00)
--- NOTE | 2016-07-08 13:01 | HHI.PR ---
Subjective Remarks The patient was doing well this morning however heart rate has been out of control up to the 130s and 40s while ambulating. However he states his dyspnea is much better. I reviewed his records from his air carrier operations inspector's in [place] Dr. Garcia. Echocardiogram shows depressed ejection fraction of 35%. I was unable to tell what the PET stress test showed however I spoke with Dr. Garcia who reviewed the stress test and he stated there was no evidence of ischemia. He also states the patient had a coronary catheterization in May 2015 which showed moderate coronary artery disease but was actually improved from a previous catheter, therefore he thinks that this cardiomyopathy is nonischemic in nature. I discussed the patient's uncontrolled heart rate with Dr. Garcia and he recommended increasing the sotalol to 120 mg by mouth twice a day and loading him with digoxin. He will follow patient up in his office next week. Objective Vitals Vital Signs Date Time Temp Pulse Resp B/P Pulse Ox O2 Delivery O2 Flow Rate FiO2 07/08/16 08:21 96.1 99 18 92/66 99 07/08/16 08:00 101 07/08/16 07:53 96 Nasal Cannula 2.00 07/08/16 04:00 97.1 90 18 100/80 99 07/08/16 00:00 96.5 110 18 94/79 96 07/07/16 20:00 115 07/07/16 20:00 97.1 86 18 107/67 95 07/07/16 19:41 94 Nasal Cannula 2.00 07/07/16 18:19 2.00 07/07/16 16:28 98 Nasal Cannula 2.00 07/07/16 16:00 97.3 84 18 111/77 98 07/07/16 15:12 88 18 111/79 I/O 07/07/16 07/07/16 07/07/16 07/08/16 07/08/16 07/08/16 07:00 15:00 23:00 07:00 15:00 23:00 Intake Total 200 ml 488 ml Output Total 1025 ml 1000 ml 450 ml Balance -825 ml -1000 ml 38 ml Intake Oral 200 ml 488 ml Output Urine Total 1025 ml 1000 ml 450 ml # Voids 2 # Bowel Movements 1 1 Result Diagram: 07/06/16 2206 07/07/16 0743 Objective Remarks GENERAL: Well-nourished, well-developed male patient. SKIN: Warm and dry. HEAD: Normocephalic. EYES: No scleral icterus. No injection or drainage. NECK: Supple, trachea midline. No JVD or lymphadenopathy. CARDIOVASCULAR: irreegular rate and rhythm without murmurs, gallops, or rubs. RESPIRATORY: Breath sounds equal bilaterally. No accessory muscle use. GASTROINTESTINAL: Abdomen soft, non-tender, nondistended. EXTREMITIES: No cyanosis, or edema. NEUROLOGICAL: Awake, alert, and oriented x 3. Non-focal. A/P Problem List: (1) Atrial fibrillation with rapid ventricular response ICD Code: I48.91 Status: Acute (2) Nonischemic cardiomyopathy ICD Code: I42.8 Status: Acute (3) Bullous emphysema ICD Code: J43.9 Status: Acute (4) Hypoxemia ICD Code: R09.02 Status: Acute (5) Atrial fibrillation ICD Code: I48.91 Status: Acute Assessment and Plan -Dyspnea likely multifactorial due to nonischemic cardiomyopathy, A. fib with uncontrolled rate, and previously unknown bullous emphysema. He is clinically much improved after being placed on oxygen and receiving IV Lasix. However now he has uncontrolled heart rate for the atrial fibrillation. He requires inpatient monitoring as we're adjusting his Betapace, starting him on digoxin IV. I will admit him. I discussed all the changes in detail with the patient and his , who requests cardiology consultation. Of note he does have an appointment with his air carrier operations inspector Dr. Garcia next week in [place], however they seem to be not happy with his care at this point. I reviewed his records from his air carrier operations inspector's in [place] Dr. Garcia. Echocardiogram shows depressed ejection fraction of 35%. I was unable to tell what the PET stress test showed however I spoke with Dr. aGrcia who reviewed the stress test and he stated there was no evidence of ischemia. I discussed the patient's uncontrolled heart rate with Dr. Garcia and he recommended increasing the sotalol to 120 mg by mouth twice a day and loading him with digoxin. Because the patient had some low blood pressures today I will DC his Norvasc and decrease his Cozaar to 25 mg by mouth at bedtime to be held if systolic blood pressure less than 110. If the above fails to control his heart rate he may need to be transferred to the main hospital for consideration of DC cardioversion as he does not want an ablation. I have spent an extensive time with this patient and his and encouraged them to get established with a primary care physician, the patient has now made an appointment to get established. Home oxygen has been arranged. He is on Coumadin which is mildly supratherapeutic. Continue daily INRs. Problem Qualifiers (1) Atrial fibrillation: Qualified Code: I48.0 - Paroxysmal atrial fibrillation Joanne Blanco MD Jul 08, 2016 13:00
[2016-07-08] MEDS: AMOXICILLIN/CLAVULANATE K 875 MG TAB PO SCH ×2 (14:14→21:15)
[2016-07-08] MEDS: ACETAMINOPHEN 325 MG TAB PO PRN (14:19)
[2016-07-08] MEDS ORDERED: POTASSIUM CHLORIDE 10 MEQ CONTROLLED RELEASE TAB PO ONE (15:45)
[2016-07-08] MEDS ORDERED: DIGOXIN 0.5 MG/2 ML VIAL IV PUSH ONE ×2 (15:45→22:00)
[2016-07-08] MEDS ORDERED: DIGO0.25 PO (15:54)
[2016-07-08] MEDS ORDERED: LOSA25TA PO (15:54)
[2016-07-08] MEDS ORDERED: SOTA160T PO (15:54)
[2016-07-08] MEDS ORDERED: PILL SPLITTER OTHER PRN (16:00)
[2016-07-08] MEDS ORDERED: SOTA120T PO (17:37)
[2016-07-08] MEDS ORDERED: SOTALOL HCL 80 MG TAB PO SCH (21:00)
[2016-07-08] MEDS: LOSARTAN 25 MG TAB PO SCH (21:15)
[2016-07-09] VITALS (14 sets, daily range): BP systolic 96–167; BP diastolic 50–108; PULSE 60–110; RESP 18–20; TEMP 95.7–98.1; O2SAT 93–97
[2016-07-09] MEDS: DOCUSATE SODIUM 100 MG CAP PO SCH ×3 (01:15→20:41)
[2016-07-09] MEDS: DIGOXIN 0.25 MG TAB PO SCH (06:18)
[2016-07-09 06:33] LABS: POTASSIUM 3.8 MEQ/L (3.5-5.1)
[2016-07-09 06:34] LABS: INTERNATIONAL NORMALIZED RATIO 3.7 RATIO; PROTHROMBIN TIME - PATIENT 42.7 SEC (9.8-11.6)
[2016-07-09 06:36] LABS: BICARBONATE 29.7 MEQ/L (21.0-32.0)
[2016-07-09] MEDS: RESP: ALBUTEROL 2.5 MG/IPRATROPIUM 0.5 MG NEB (SCH) NEB ×4 (07:52→19:22)
--- NOTE | 2016-07-09 08:55 | MB ---
cc: PHUONG CROUCH MD DATE OF CONSULTATION 07/09/2016 REASON FOR CONSULTATION Atrial fibrillation, newly discovered cardiomyopathy. HISTORY OF PRESENT ILLNESS The patient is a pleasant 70-year-old gentleman who previously was seeing cardiology in [place], but informs me that he is not returning. He presented with several weeks of worsening shortness of breath. He had an initial workup performed by his outpatient mold breaker including a stress test and echocardiogram which will be described further below. He was found to be in rapid atrial fibrillation in the emergency department, began on oral medications and now feels much better. He has also been given Lasix and has diuresed. Again, he feels much better than on admission. He denies any residual shortness of breath. He did have some mild chest discomfort this morning in the central chest. No lightheadedness, dizziness or syncope. PAST MEDICAL HISTORY 1. Long history of paroxysmal atrial fibrillation treated with multiple antiarrhythmic drugs most recently with Sotalol and maintained on Warfarin. 2. Peripheral vascular disease. 3. Coronary artery disease status post remote POBA. 4. Hypertension 5. Hyperlipidemia CURRENT MEDICATIONS 1. Digoxin 0.25 mg daily. 2. Cozaar 25 mg q.h.s. 3. Sotalol 120 mg b.i.d. 4. Lasix 40 mg daily. ALLERGIES NO KNOWN DRUG ALLERGIES. PHYSICAL EXAMINATION VITAL SIGNS: Afebrile, pulse 98, respiratory rate 80, BP 127/77 sating 97 on two liters. GENERAL: This is a pleasant well-appearing gentleman in no distress. NECK: No JVD. LUNGS: Clear to auscultation bilaterally. CARDIOVASCULAR: Regularly irregular rhythm with regular rate. No murmurs appreciated. ABDOMEN: Benign. EXTREMITIES: No edema. LABORATORY DATA White count 12.0, hematocrit 38.0, platelets 282. Sodium 142, potassium 3.8, chloride 105, bicarb 29.7, BUN 27, creatinine 0.8, glucose 122. Cardiac enzymes were negative x3. BNP is slightly elevated at 401, INR is 3.7. Nuclear stress test performed at an outside facility showed "moderate size mid anteroseptal infarction with ischemia and inferior moderate infarction mixed with ischemia". An echocardiogram showed an ejection fraction of 35% with moderate LV and LA dilation. EKG shows atrial fibrillation with left bundle-branch block at a controlled rate. Initially it was a rapid. IMPRESSION Cardiomyopathy. The patient by nuclear stress test has an ischemic cardiomyopathy, although I would not be surprised if there is a nonischemic element due to uncontrolled atrial fibrillation. I will stop his Sotalol and begin Carvedilol and continue him on his ARB. He did have some mild chest discomfort. I will add Imdur as the second antianginal regimen with his beta mohini. He is interested in atrial fibrillation ablation due to his abnormal stress test and shortness of breath, although which is likely related to congestive heart failure was also mixed with chest pain and could be anginal equivalent. I will recommend and a diagnostic cardiac catheterization performed by one of my colleagues. The patient and a life particularly wish to get this performed while he is in the hospital so I will transfer him up to [facility]. Further recommendations will be based on his clinical course. Thank you again for opportunity to participate in this patient's care. MD STEPHANIE Plaza/NEEMA /8:24 AM /8:40 AM
[2016-07-09] MEDS: AMOXICILLIN/CLAVULANATE K 875 MG TAB PO SCH ×2 (09:20→20:40)
[2016-07-09] MEDS: CARVEDILOL 6.25 MG TAB PO SCH ×2 (09:21→20:40)
[2016-07-09] MEDS: PRAVASTATIN SOD 40 MG TAB PO SCH (09:21)
[2016-07-09] MEDS: FUROSEMIDE 40 MG TAB PO SCH (09:22)
[2016-07-09] MEDS: SODIUM CHLORIDE 0.9% FLUSH 5 ML FLUSH FLUSH SCH ×2 (09:22→20:40)
--- NOTE | 2016-07-09 10:08 | HHI.PR ---
Subjective Remarks Patient seen and evaluated today in follow-up for nonspecified cardiomyopathy with chest pain, congestive heart failure and atrial fibrillation. Cardiology consult appreciated. No events overnight. Heart rate better. Patient to be transferred to maintain for further cardiac evaluation/cardiac catheterization and possible EP procedures. Plan of care discussed with patient and significant other at bedside Objective Vitals Vital Signs Date Time Temp Pulse Resp B/P Pulse Ox O2 Delivery O2 Flow Rate FiO2 07/09/16 08:00 98 07/09/16 08:00 96.9 75 20 126/86 95 07/09/16 07:55 97 21 07/09/16 06:10 96.5 68 18 127/77 07/09/16 04:00 97.1 70 18 96/50 97 07/09/16 01:00 70 07/09/16 00:00 95.7 84 18 106/70 96 07/08/16 20:30 144 07/08/16 20:00 97.8 107 18 122/73 95 07/08/16 16:00 96.8 104 16 113/91 99 07/08/16 15:43 96.8 104 16 113/91 99 07/08/16 13:11 96.4 108 16 138/107 99 I/O 07/08/16 07/08/16 07/08/16 07/09/16 07/09/16 07/09/16 07:00 15:00 23:00 07:00 15:00 23:00 Intake Total 488 ml 1240 ml 120 ml Output Total 450 ml Balance 38 ml 1240 ml 120 ml Intake Oral 488 ml 1240 ml 120 ml Output Urine Total 450 ml # Voids 6 # Bowel Movements 1 2 Result Diagram: 07/06/16 2206 07/09/16 0535 Objective Remarks GENERAL: This is a well-nourished, well-developed patient, in no apparent distress. CARDIOVASCULAR: Atrial fibrillation controlled rate without murmurs, gallops, or rubs. RESPIRATORY: Clear to auscultation. Breath sounds equal bilaterally. No wheezes , rales, or rhonchi. GASTROINTESTINAL: Abdomen soft, non-tender, nondistended. Normal active bowel sounds MUSCULOSKELETAL: Extremities without clubbing, cyanosis, or edema. NEURO: Alert & Oriented x4 to person, place, time, situation. Moves all ext x4 A/P Problem List: (1) Atrial fibrillation with rapid ventricular response ICD Code: I48.91 Status: Acute Plan: Improved on current medication (2) Bullous emphysema ICD Code: J43.9 Status: Acute Plan: Currently respiratory status is improved. Continue bronchodilators as needed, follow-up oxygenation (3) Cardiomyopathy ICD Code: I42.9 Status: Acute Plan: Cardiac catheterization. Patient will be transferred to the [facility]. Sotalol discontinued in lieu of Coreg Continue isosorbide, Cozaar, digoxin, statin Patient may need further intervention pending catheterization results Patient with acute signs and symptoms of congestive heart failure out 2.45 L in diuresis Discharge Planning Transferred to [facility] Dora Lei MD Jul 09, 2016 10:08
[2016-07-09] MEDS: ACETAMINOPHEN 325 MG TAB PO PRN ×2 (17:57→23:40)
[2016-07-09] MEDS: LOSARTAN 25 MG TAB PO SCH (20:40)
[2016-07-10] VITALS (27 sets, daily range): BP systolic 96–153; BP diastolic 61–85; PULSE 85–118; RESP 16–20; TEMP 97.4–98.4; O2SAT 92–95
[2016-07-10 06:06] LABS: INTERNATIONAL NORMALIZED RATIO 2.1 RATIO; PROTHROMBIN TIME - PATIENT 24.3 SEC (9.8-11.6)
[2016-07-10] MEDS: ISOSORBIDE MONONITRATE 30 MG TAB PO SCH (06:08)
[2016-07-10] MEDS: DIGOXIN 0.25 MG TAB PO SCH (06:08)
[2016-07-10] MEDS: RESP: ALBUTEROL 2.5 MG/IPRATROPIUM 0.5 MG NEB (SCH) NEB ×4 (08:15→20:47)
--- NOTE | 2016-07-10 08:27 | PD.CARD.PN ---
Subjective Subjective Remarks Pt feeling better but still difficult rates. Objective Medications Administered Medications Medications (Trade) Dose Ordered Sig/Donna Route PRN Reason Start Time Stop Time Status Last Admin Dose Admin IV Flush (NS Flush) 2 ml UNSCH PRN FLUSH FLUSH AFTER USING IV ACCESS 07/07/16 01:15 07/07/16 15:17 IV Flush (NS Flush) 2 ml BID FLUSH 07/07/16 09:00 07/09/16 20:40 Acetaminophen (Tylenol) 650 mg Q4H PRN PO TEMP > 100.4 07/07/16 01:15 07/09/16 17:57 Acetaminophen (Tylenol) 650 mg Q6H PRN PO PAIN SCALE 1 TO 2 07/07/16 01:15 07/09/16 23:40 Pravastatin Sodium (Pravachol) 40 mg DAILY PO 07/07/16 09:00 07/09/16 09:21 Furosemide (Lasix) 40 mg DAILY PO 07/08/16 09:00 07/09/16 09:22 Amoxicillin/ Clavulanate Potassium (Augmentin) 875 mg BID PO 07/08/16 13:00 07/09/16 20:40 Losartan Potassium (Cozaar) 25 mg HS PO 07/08/16 21:00 07/09/16 20:40 Digoxin (Lanoxin) 0.25 mg DAILY@0600 PO 07/09/16 06:00 07/10/16 06:08 Carvedilol (Coreg) 6.25 mg Q12HR PO 07/09/16 09:00 07/09/16 20:40 Isosorbide Mononitrate (Imdur) 30 mg DAILY@07 PO 07/10/16 07:00 07/10/16 06:08 Vital Signs / I&O Vital Signs Date Time Temp Pulse Resp B/P Pulse Ox O2 Delivery O2 Flow Rate FiO2 07/10/16 04:00 94 07/10/16 03:54 98.1 110 20 121/62 93 07/10/16 03:00 97 07/10/16 02:00 93 07/10/16 01:00 108 07/10/16 00:40 20 07/10/16 00:00 110 07/09/16 23:27 94 07/09/16 23:25 98.1 100 20 127/72 94 07/09/16 21:54 81 20 115/72 07/09/16 21:00 97.7 60 20 167/108 94 07/09/16 20:30 110 07/09/16 19:44 20 07/09/16 19:22 93 21 07/09/16 16:00 97.1 89 20 122/85 95 07/09/16 12:00 97.2 77 20 136/78 96 I/O 07/09/16 07/09/16 07/09/16 07/10/16 07/10/16 07/10/16 07:00 15:00 23:00 07:00 15:00 23:00 Intake Total 120 ml 850 ml 360 ml Output Total 300 ml Balance 120 ml 850 ml 60 ml Intake Oral 120 ml 850 ml 360 ml IV Total 0 ml Output Urine Total 300 ml Emesis 0 ml # Voids 6 2 # Bowel Movements 2 0 Physical Exam GENERAL: This is a well-nourished, well-developed patient, in no apparent distress. CARDIOVASCULAR: Rapid rate and irregular rhythm without murmurs, gallops, or rubs. RESPIRATORY: Clear to auscultation. Breath sounds equal bilaterally. No wheezes , rales, or rhonchi. GASTROINTESTINAL: Abdomen soft, non-tender, nondistended. Normal, active bowel sounds MUSCULOSKELETAL: Extremities without clubbing, cyanosis, or edema. NEURO: Alert & Oriented x4 to person, place, time, situation. Moves all ext x4 Laboratory Laboratory Tests Test 07/10/16 04:52 Prothrombin Time 24.3 SEC Prothromb Time International 2.1 RATIO Ratio Imaging Last Impressions Chest CT 07/07/16 0000 Signed Impressions: Service Date/Time: Thursday, July 07, 2016 20:20 - CONCLUSION: 1. Tiny left and small right pleural effusions. The right is slightly larger from the prior study. 2. Bullous emphysematous changes. 3. Mild mediastinal adenopathy. 4. Coronary artery atherosclerotic calcifications. Ant Candelario Jr., MD Chest X-Ray 07/06/162157 Signed Impressions: Service Date/Time: Wednesday, July 06, 2016 22:13 - CONCLUSION: 1. Minimal basilar atelectasis. Edison Finch MD Aorta CTA 07/06/162157 Signed Impressions: Service Date/Time: Wednesday, July 06, 2016 23:19 - CONCLUSION: 1. No evidence of aortic dissection or aneurysmal dilatation. 2. Atherosclerotic changes are seen throughout the aorta. 3. A few nonspecific nodules in the right lobe of the thyroid. 4. Bilateral iliac vein stents. 5. Bullous emphysema with a very small right effusion versus pleural thickening. Dominguez Valenzuela MD Assessment and Plan Problem List: (1) Systolic CHF Assessment and Plan: Breathing better, compensated. (2) Cardiomyopathy Assessment and Plan: on BB, changed ARB to Entresto (low dose) (3) Atrial fibrillation with rapid ventricular response Assessment and Plan: increased coreg, on dig, holding warfarin; he would like ablation. (4) Abnormal nuclear cardiac imaging test Assessment and Plan: outside nuc stress read as mixed infarct/ischemia ant/ inferior, given some chest discomfort/dyspnea (anginal equivalent) and desire for afib ablation, believe cath is reasonable, asked Dr. Finch to perform. Assessment and Plan One of my partners will be available starting tomorrow, will see him back in my office in 2-3 weeks. Kumar Holland MD Jul 10, 2016 08:27
[2016-07-10] MEDS: CARVEDILOL 6.25 MG TAB PO SCH ×2 (09:27→20:49)
[2016-07-10] MEDS: PRAVASTATIN SOD 40 MG TAB PO SCH (09:27)
[2016-07-10] MEDS: FUROSEMIDE 40 MG TAB PO SCH (09:27)
[2016-07-10] MEDS: SODIUM CHLORIDE 0.9% FLUSH 5 ML FLUSH FLUSH SCH ×2 (09:29→20:52)
[2016-07-10] MEDS: SACUBITRIL/VALSARTAN 24 MG-26 MG TAB PO SCH ×2 (09:34→20:50)
[2016-07-10] MEDS: AMOXICILLIN/CLAVULANATE K 875 MG TAB PO SCH ×2 (09:34→20:49)
--- NOTE | 2016-07-10 11:47 | HHI.PR ---
Subjective Remarks Follow up for Cardiomyopathy, Afib. Mr. Watkins is doing well. Denies any CP, SOB, fever, chills. He was transferred from [place] for possible cardiac cath. He will undergo cardiac cath this afternoon (Dr. Rodrigez). Objective Vitals Vital Signs Date Time Temp Pulse Resp B/P Pulse Ox O2 Delivery O2 Flow Rate FiO2 07/10/16 04:00 94 07/10/16 03:54 98.1 110 20 121/62 93 07/10/16 03:00 97 07/10/16 02:00 93 07/10/16 01:00 108 07/10/16 00:40 20 07/10/16 00:00 110 07/09/16 23:27 94 07/09/16 23:25 98.1 100 20 127/72 94 07/09/16 21:54 81 20 115/72 07/09/16 21:00 97.7 60 20 167/108 94 07/09/16 20:30 110 07/09/16 19:44 20 07/09/16 19:22 93 21 07/09/16 16:00 97.1 89 20 122/85 95 07/09/16 12:00 97.2 77 20 136/78 96 I/O 07/09/16 07/09/16 07/09/16 07/10/16 07/10/16 07/10/16 07:00 15:00 23:00 07:00 15:00 23:00 Intake Total 120 ml 850 ml 360 ml Output Total 300 ml Balance 120 ml 850 ml 60 ml Intake Oral 120 ml 850 ml 360 ml IV Total 0 ml Output Urine Total 300 ml Emesis 0 ml # Voids 6 2 # Bowel Movements 2 0 Result Diagram: 07/06/166 07/09/16 0535 Imaging Last Impressions Chest CT 07/07/16 0000 Signed Impressions: Service Date/Time: Thursday, July 07, 2016 20:20 - CONCLUSION: 1. Tiny left and small right pleural effusions. The right is slightly larger from the prior study. 2. Bullous emphysematous changes. 3. Mild mediastinal adenopathy. 4. Coronary artery atherosclerotic calcifications. Ant Candelario Jr., MD Chest X-Ray 07/06/165 Signed Impressions: Service Date/Time: Wednesday, July 06, 2016 22:13 - CONCLUSION: 1. Minimal basilar atelectasis. Edison Finch MD Aorta CTA 07/06/165 Signed Impressions: Service Date/Time: Wednesday, July 06, 2016 23:19 - CONCLUSION: 1. No evidence of aortic dissection or aneurysmal dilatation. 2. Atherosclerotic changes are seen throughout the aorta. 3. A few nonspecific nodules in the right lobe of the thyroid. 4. Bilateral iliac vein stents. 5. Bullous emphysema with a very small right effusion versus pleural thickening. Dominguez Valenzuela MD Objective Remarks GENERAL: AOX3, NAD. SKIN: Warm and dry. HEAD: Normocephalic. EYES: No scleral icterus. No injection or drainage. NECK: Supple, trachea midline. No JVD or lymphadenopathy. CARDIOVASCULAR: Irreg Irreg Tachycardic without murmurs, gallops, or rubs. RESPIRATORY: Breath sounds equal bilaterally. No accessory muscle use. GASTROINTESTINAL: Abdomen soft, non-tender, nondistended. MUSCULOSKELETAL: No cyanosis, or edema. BACK: Nontender without obvious deformity. No CVA tenderness. Procedures None. A/P Problem List: (1) Atrial fibrillation with rapid ventricular response ICD Code: I48.91 Status: Acute (2) Bullous emphysema ICD Code: J43.9 Status: Acute (3) Cardiomyopathy ICD Code: I42.9 Status: Acute Assessment and Plan This is a 70-year-old male with past medical history of paroxysmal atrial fibrillation, peripheral vascular disease who presented to the ER last night complaining of shortness of breath ongoing for 1 month prior to this admission on 07/07/2016. Outside nuclear stress test showed moderate-sized mid anteroseptal infarction with ischemia and inferior moderate infarction mixed with ischemia. An echocardiogram showed ejection fraction 35% with moderate LV and LA dilation. Cardiology evaluated patient and recommended ischemic workup with cardiac catheterization. - Probable ischemic cardiomyopathy - Possibly ischemic and/or non-ischemic Afib induced cardiomyopathy - Cardiac cath today. Continue Carvedilol 12.5 mg by mouth every 12 hours, furosemide 40 mg by mouth daily, pravastatin 40 mg by mouth daily - Continue Sacubitril-Valsartan BID, Imur 30mg Qday. - Atrial fibrillation - Continue carvedilol 12.5 mg by mouth every 12 hours, warfarin. - Continue Digoxin 0.25mg Qday. - Patient may need a atrial fibrillation ablation Full code. Warfarin. INR 2.1 Dashawn Talbot DO Jul 10, 2016 11:47 am
[2016-07-10] MEDS: DOCUSATE SODIUM 100 MG CAP PO SCH (13:15)
[2016-07-10] MEDS ORDERED: VERAPAMIL HCL 5 MG/2 ML VIAL ONE (15:26)
[2016-07-10] MEDS ORDERED: HEPARIN-NS/PF INJ 500 ML ONE (15:26)
[2016-07-10] MEDS ORDERED: HEPARIN SODIUM - IV 10,000 UNITS/10 ML VIAL ONE (15:26)
[2016-07-10] MEDS ORDERED: NITROGLYCERIN INJ 5 ML ONE (15:26)
[2016-07-10] MEDS ORDERED: MIDAZOLAM HCL 2 MG/2 ML VIAL ONE (15:26)
[2016-07-10] MEDS ORDERED: IOHEXOL 350 MG/ML 100 ML BTL (for Cath Lab) OTHER ONE (15:45)
[2016-07-10] MEDS ORDERED: VERAPAMIL INJ 10 MG/4 ML VIAL ONE (15:47)
[2016-07-10] MEDS ORDERED: BACITRACIN OINT 0.9 GM PKT ONE (17:54)
--- NOTE | 2016-07-10 23:03 | MB ---
cc: DANIELITO ADKINS DATE OF CONSULTATION 07/10/16 1945 REASON FOR CONSULTATION Cardiomyopathy, chest pain. HISTORY OF PRESENT ILLNESS 70-year-old male with past medical history significant for atrial fibrillation, peripheral vascular disease, CAD, hypertension and hyperlipidemia who was admitted to [place] with worsening shortness of breath for the last couple of days. He also reports some mild chest discomfort localized to the central aspect of his chest precordium. He denied lightheadedness, dizziness or syncope. He was initially seen by my colleague, Dr. Holland., who has been treating him for heart failure and the patient is feeling better. However, reports from outside hospital show that he had a positive nuclear stress test showing moderate size mid anteroseptal infarction with ischemia and also an inferior moderate infarction mixed with ischemia. He also has an echocardiogram showing a low EF of 35% with a moderate LV and LA dilation. Thus, I have been consulted to evaluate for left heart cath to rule out any worsening of his coronary artery disease. PAST MEDICAL HISTORY 1. Atrial fibrillation 2. Peripheral vascular disease, 3. Coronary artery disease, 4. Hypertension, 5. Hyperlipidemia. ALLERGIES NO KNOWN DRUG ALLERGIES. FAMILY HISTORY Noncontributory. SOCIAL HISTORY Denies smoking, alcohol use or illicit drug use. MEDICATIONS Cardiac home 1. Norvasc 10 mg p.o. daily. 2. Digoxin 0.25 mg p.o. daily, 3. Lasix 40 mg p.o. daily 4. Losartan 50 mg p.o. daily, 5. Pravastatin 40 mg p.o. daily. 6. Sotalol 80 mg p.o. b.i.d. 7. Warfarin 6 mg p.o. daily PHYSICAL EXAMINATION VITAL SIGNS: Temperature 97.6, heart rate atrial fibrillation in the 90s. Blood pressure 105/66, O2 sat 95%RA GENERAL: He is awake, alert, oriented x3 in no acute distress. at bedside. NECK: No JVD, no carotid bruits. HEART: Irregularly irregularly and no murmurs, rubs or gallops appreciated. LUNGS: Clear to auscultation bilaterally. ABDOMEN: Obese. Positive bowel sounds, soft, nontender, nondistended. EXTREMITIES: No cyanosis or edema. Pulses throughout. LABORATORY DATA CBC - hemoglobin 12, hematocrit 38, platelet count of 282, INR 2.1. Chemistries - sodium 142, potassium 3.8, BUN 27, creatinine 0.8. Troponins less than 0.02 x3. BNP 401. IMAGING STUDIES Chest CT showed tiny left and right pleural effusions, bullous emphysematous changes. Chest x-ray shows atelectasis and aorta CT shows no evidence of aortic dissection or and aneurysmal dilation. CARDIOLOGY STUDIES Telemetry is atrial fibrillation with nonspecific ST changes and a left bundle branch block ASSESSMENT/PLAN A 70-year-old male who presented with acute on chronic systolic heart failure exacerbation unclear whether it was due to atrial fibrillation or new onset of worsening ischemia. Currently he remains chest pain free, denies shortness of breath, palpitations, dizziness. He has outside hospital positive stress test showing ischemia. So at this point I think it would reasonable to offer him left heart cath +/- PCI in to further evaluate for CAD progression. Risks and benefits of left heart cath/intervention including but not limited to infection , bleeding, acute renal failure, stroke, emergent bypass surgery, heart attack, neurovascular trauma and have been explained to the patient and he is willing to proceed. For the meantime, we will keep the patient n.p.o. and continue aggressive medical management for his coronary artery disease. MD GITA Francis/ /3:39 PM /10:39 PM SNOW
[2016-07-11] VITALS (24 sets, daily range): BP systolic 112–163; BP diastolic 64–81; PULSE 54–126; RESP 18–20; TEMP 97.7–98.2; O2SAT 93–97
[2016-07-11] MEDS: DOCUSATE SODIUM 100 MG CAP PO SCH ×2 (00:38→13:15)
[2016-07-11] MEDS: ACETAMINOPHEN 325 MG TAB PO PRN ×2 (03:36→12:06)
[2016-07-11] MEDS: ISOSORBIDE MONONITRATE 30 MG TAB PO SCH (05:54)
[2016-07-11] MEDS: DIGOXIN 0.25 MG TAB PO SCH (05:54)
--- NOTE | 2016-07-11 06:19 | MA ---
cc: DANIELITO ADKINS DATE: 07/10/2016 DATE OF : 1945 PROCEDURE PERFORMED 1. Left heart catheterization, 2. Selective right and left coronary angiography, 3. Left ventriculography. APPROACH Right radial artery. INDICATION New-onset LV systolic dysfunction, positive stress test. DESCRIPTION Consent signed. The patient was brought into the cardiac laborer wharf in a fasting state. The right wrist was prepped and draped in sterile fashion. Using 1% lidocaine for local anesthesia and a micropuncture kit a 6-Faroese sheath was inserted into the right radial artery. Antispasmodic cocktail given. Selective right and left coronary angiography was performed with JR4 and JL3.5 diagnostic catheters. Angiography was performed in multiple views. An angled pigtail was introduced into the left ventricle followed by measurement of hemodynamics, left ventriculogram and pullback. The patient tolerated the procedure well without complications. Estimated blood loss less than 30 cc. Total contrast used 70 cc. The right wrist radial site was closed with a TR band. RESULTS LEFT VENTRICLE The left ventricular pressure was 95/-2 with an LVEDP of 10. The aortic pressure was 80/52 with a mean of 63. The left ventriculogram reveals an estimated ejection fraction of 35-40% with anterior wall hypokinesia. ANGIOGRAPHY 1. The right coronary artery is a non-dominant vessel. It has non-obstructive coronary artery disease and CORRINA-III flow. 2. The left main is short and patent. 3. The LAD is a transapical vessel. It has minimal luminal irregularities, non- obstructive coronary artery disease and CORRINA-III flow. D1, D2, D3 are patent. The same LAD has a prominent septals that are also patent. 4. The left circumflex artery is the dominant vessel. It has minimal luminal irregularities throughout. It gives off the PDA which is patent. OM1, OM2 and OM3 are also patent. CONCLUSIONS 1. Normal coronary arteries. 2. Non-ischemic cardiomyopathy. RECOMMENDATIONS Continue aggressive medical management for heart failure. The patient will be consulted to EP for atrial fibrillation ablation. Danielito Adkins MD A P SUPERVISOR/BT /4:17 PM /6:13 AM SNOW
[2016-07-11] MEDS: RESP: ALBUTEROL 2.5 MG/IPRATROPIUM 0.5 MG NEB (SCH) NEB (07:39)
[2016-07-11 08:11] LABS: INTERNATIONAL NORMALIZED RATIO 1.5 RATIO; PROTHROMBIN TIME - PATIENT 17.4 SEC (9.8-11.6)
[2016-07-11] MEDS: SODIUM CHLORIDE 0.9% FLUSH 5 ML FLUSH FLUSH SCH ×2 (09:00→21:06)
--- NOTE | 2016-07-11 10:48 | HHI.PR ---
Subjective Remarks Follow-up for nonischemic cardiomyopathy, atrial fibrillation with rapid ventricular rhythm. Patient is currently doing well. Denies any chest pain, shortness of breath, fever or chills. However when his heart rate goes high around 140-160, he does feel lightheaded. Objective Vitals Vital Signs Date Time Temp Pulse Resp B/P Pulse Ox O2 Delivery O2 Flow Rate FiO2 07/11/16 08:00 110 20 119/76 95 07/11/16 07:41 97 21 07/11/16 06:00 109 07/11/16 05:00 96 07/11/16 04:19 20 07/11/16 04:00 98 07/11/16 03:33 97.8 103 20 120/70 95 07/11/16 03:00 92 07/11/16 02:00 96 07/11/16 01:00 88 07/11/16 00:27 98.2 102 20 112/64 93 07/11/16 00:00 102 07/10/16 23:00 101 07/10/16 23:00 101 20 96/67 93 07/10/16 22:00 105 07/10/16 22:00 105 20 122/85 93 07/10/16 21:00 101 07/10/16 21:00 101 20 126/74 92 07/10/16 20:48 93 21 07/10/16 20:00 110 07/10/16 19:55 97.7 104 20 132/81 94 07/10/16 19:55 Room Air 07/10/16 19:00 102 07/10/16 19:00 102 20 153/79 92 07/10/16 18:00 96 07/10/16 17:00 92 07/10/16 16:30 98.4 89 20 114/61 92 07/10/16 15:00 89 07/10/16 14:00 85 07/10/16 13:00 98 07/10/16 12:00 86 07/10/16 11:30 95 Room Air 07/10/16 11:30 97.6 96 18 105/66 95 07/10/16 11:00 118 I/O 07/10/16 07/10/16 07/10/16 07/11/16 07/11/16 07/11/16 07:00 15:00 23:00 07:00 15:00 23:00 Intake Total 360 ml 360 ml 600 ml Output Total 300 ml 725 ml 1900 ml Balance 60 ml -365 ml -1300 ml Intake Oral 360 ml 360 ml 600 ml IV Total 0 ml 0 ml Output Urine Total 300 ml 725 ml 1900 ml Emesis 0 ml 0 ml # Bowel Movements 0 0 Result Diagram: 07/09/16 0535 Imaging Last Impressions Chest CT 07/07/16 0000 Signed Impressions: Service Date/Time: Thursday, July 07, 2016 20:20 - CONCLUSION: 1. Tiny left and small right pleural effusions. The right is slightly larger from the prior study. 2. Bullous emphysematous changes. 3. Mild mediastinal adenopathy. 4. Coronary artery atherosclerotic calcifications. Ant Candelario Jr., MD Chest X-Ray 07/06/162157 Signed Impressions: Service Date/Time: Wednesday, July 06, 2016 22:13 - CONCLUSION: 1. Minimal basilar atelectasis. Edison Finch MD Aorta CTA [id number]/06/162157 Signed Impressions: Service Date/Time: Wednesday, July 06, 2016 23:19 - CONCLUSION: 1. No evidence of aortic dissection or aneurysmal dilatation. 2. Atherosclerotic changes are seen throughout the aorta. 3. A few nonspecific nodules in the right lobe of the thyroid. 4. Bilateral iliac vein stents. 5. Bullous emphysema with a very small right effusion versus pleural thickening. Dominguez Valenzuela MD Objective Remarks GENERAL: AOX3, NAD. SKIN: Warm and dry. HEAD: Normocephalic. EYES: No scleral icterus. No injection or drainage. NECK: Supple, trachea midline. No JVD or lymphadenopathy. CARDIOVASCULAR: Irreg Irreg Tachycardic without murmurs, gallops, or rubs. RESPIRATORY: Breath sounds equal bilaterally. No accessory muscle use. GASTROINTESTINAL: Abdomen soft, non-tender, nondistended. MUSCULOSKELETAL: No cyanosis, or edema. BACK: Nontender without obvious deformity. No CVA tenderness. Procedures Cardiac catheterization 07/10/2016. CONCLUSIONS 1. Normal coronary arteries. 2. Non-ischemic cardiomyopathy. RECOMMENDATIONS Continue aggressive medical management for heart failure. The patient will be consulted to EP for atrial fibrillation ablation. A/P Problem List: (1) Atrial fibrillation with rapid ventricular response ICD Code: I48.91 Status: Acute (2) Bullous emphysema ICD Code: J43.9 Status: Acute (3) Cardiomyopathy ICD Code: I42.9 Status: Acute Assessment and Plan This is a 70-year-old male with past medical history of paroxysmal atrial fibrillation, peripheral vascular disease who presented to the ER last night complaining of shortness of breath ongoing for 1 month prior to this admission on 07/07/2016. Outside nuclear stress test showed moderate-sized mid anteroseptal infarction with ischemia and inferior moderate infarction mixed with ischemia. An echocardiogram showed ejection fraction 35% with moderate LV and LA dilation. Cardiology evaluated patient and recommended ischemic workup with cardiac catheterization which was done on 07/10/2016 and shows normal coronary arteries. - Nonischemic cardiomyopathy with EF 35%. - Likely due to Atrial fibrillation. - Cardiac catheterization shows normal coronary arteries. - Continue carvedilol 12.5 mg by mouth every 12 hours, digoxin 0.25 mg by mouth daily, isosorbide mononitrate 30 mg by mouth daily, Lasix 40 mg by mouth daily - Continue Sacubitril-Valsartan BID, Imur 30mg Qday, pravastatin 40 mg daily. - Atrial fibrillation - Continue carvedilol 12.5 mg by mouth every 12 hours. - Continue Digoxin 0.25mg Qday. - We'll start patient on Cardizem drip today due to sustained A. fib with RVR. - Also start Cardizem 60 mg 4 times a day by mouth. - Discussed with patient and his regarding anticoagulation. Patient would prefer to be on apixaban. - INR 1.5 today. We'll start patient on apixaban 5 mg twice a day. - Probable atrial fibrillation ablation on 07/13/2016. Full code. INR 1.5. Start Apixaban 5mg BID tonedward. Dashawn Talbot DO Jul 11, 2016 10:48 am
[2016-07-11] MEDS: FUROSEMIDE 40 MG TAB PO SCH (10:52)
[2016-07-11] MEDS: AMOXICILLIN/CLAVULANATE K 875 MG TAB PO SCH ×2 (10:52→21:04)
[2016-07-11] MEDS: SACUBITRIL/VALSARTAN 24 MG-26 MG TAB PO SCH ×2 (10:53→21:05)
[2016-07-11] MEDS: PRAVASTATIN SOD 40 MG TAB PO SCH (10:53)
[2016-07-11] MEDS: CARVEDILOL 6.25 MG TAB PO SCH ×2 (10:54→21:04)
[2016-07-11] MEDS ORDERED: DILTIAZEM INJ 125 MG in SODIUM CHLORIDE 0.9% INJ 100 ML IV SCH (11:00)
[2016-07-11] MEDS: DILTIAZEM HCL 60 MG TAB PO SCH ×4 (11:20→21:04)
--- NOTE | 2016-07-11 11:25 | PD.CARD.PN ---
Subjective Subjective Remarks no complaints afib with RVR on telemetry s/p LHC non-obstructive CAD Objective Medications Current Medications Medications (Trade) Dose Ordered Sig/Donna Route Start Time Stop Time Status Last Admin (NS Flush) 2 ml UNSCH PRN FLUSH 07/07/16 01:15 07/07/16 15:17 (NS Flush) 2 ml BID FLUSH 07/07/16 09:00 07/10/16 20:52 (Tylenol) 650 mg Q4H PRN PO 07/07/16 01:15 07/11/16 03:36 (Colace) 100 mg Q12H PO 07/07/16 01:15 (Tylenol) 650 mg Q6H PRN PO 07/07/16 01:15 07/09/16 23:40 (Roxicodone) 5 mg Q4H PRN PO 07/07/16 01:15 07/11/16 10:55 (Narcan Inj) 0.4 mg UNSCH PRN IV 07/07/16 01:15 (Pravachol) 40 mg DAILY PO 07/07/16 09:00 07/11/16 10:53 (Lasix) 40 mg DAILY PO 07/08/16 09:00 07/11/16 10:52 (Augmentin) 875 mg BID PO 07/08/16 13:00 07/11/16 10:52 (Lanoxin) 0.25 mg DAILY@0600 PO 07/09/16 06:00 07/11/16 05:54 (Pill Splitter) 1 ea UNSCH PRN OTHER 07/08/16 16:00 (Imdur) 30 mg DAILY@07 PO 07/10/16 07:00 07/11/16 05:54 (Coreg) 12.5 mg Q12HR PO 07/10/16 09:00 07/11/16 10:54 (Entresto 24-26 Mg) 1 tab BID PO 07/10/16 09:00 07/11/16 10:53 Diltiazem HCl 60 mg 60 mg QID PO 07/11/16 11:00 07/11/16 11:20 (Cardizem Inj/NS Inj) 125 ml @ 0 mls/hr TITRATE IV 07/11/16 11:00 07/11/16 11:19 (Eliquis) 5 mg BID PO 07/11/16 21:00 Vital Signs / I&O Vital Signs Date Time Temp Pulse Resp B/P Pulse Ox O2 Delivery O2 Flow Rate FiO2 07/11/16 08:00 110 20 119/76 95 07/11/16 07:41 97 21 07/11/16 06:00 109 07/11/16 05:00 96 07/11/16 04:19 20 07/11/16 04:00 98 07/11/16 03:33 97.8 103 20 120/70 95 07/11/16 03:00 92 07/11/16 02:00 96 07/11/16 01:00 88 07/11/16 00:27 98.2 102 20 112/64 93 07/11/16 00:00 102 07/10/16 23:00 101 07/10/16 23:00 101 20 96/67 93 07/10/16 22:00 105 07/10/16 22:00 105 20 122/85 93 07/10/16 21:00 101 07/10/16 21:00 101 20 126/74 92 07/10/16 20:48 93 21 07/10/16 20:00 110 07/10/16 19:55 97.7 104 20 132/81 94 07/10/16 19:55 Room Air 07/10/16 19:00 102 07/10/16 19:00 102 20 153/79 92 07/10/16 18:00 96 07/10/16 17:00 92 07/10/16 16:30 98.4 89 20 114/61 92 07/10/16 15:00 89 07/10/16 14:00 85 07/10/16 13:00 98 07/10/16 12:00 86 07/10/16 11:30 95 Room Air 07/10/16 11:30 97.6 96 18 105/66 95 I/O 07/10/16 07/10/16 07/10/16 07/11/16 07/11/16 07/11/16 07:00 15:00 23:00 07:00 15:00 23:00 Intake Total 360 ml 360 ml 600 ml Output Total 300 ml 725 ml 1900 ml Balance 60 ml -365 ml -1300 ml Intake Oral 360 ml 360 ml 600 ml IV Total 0 ml 0 ml Output Urine Total 300 ml 725 ml 1900 ml Emesis 0 ml 0 ml # Bowel Movements 0 0 Physical Exam GENERAL: Well-nourished, well-developed patient. SKIN: Warm and dry. HEAD: Normocephalic. EYES: No scleral icterus. No injection or drainage. NECK: Supple, trachea midline. No JVD or lymphadenopathy. CARDIOVASCULAR: Irr Irr without murmurs, gallops, or rubs. RESPIRATORY: Breath sounds equal bilaterally. No accessory muscle use. GASTROINTESTINAL: Abdomen soft, non-tender, nondistended. EXTREMITIES: No cyanosis, or edema. NEUROLOGICAL: Awake, alert, and oriented x 3. Non-focal. Laboratory Laboratory Tests Test 07/11/16 07:28 Prothrombin Time 17.4 SEC Prothromb Time International 1.5 RATIO Ratio Assessment and Plan Problem List: (1) Atrial fibrillation with rapid ventricular response Assessment and Plan: Start CCB drip Cont OAC Afib ablation on Wednesday with Dr. Crain (2) Systolic CHF (3) Cardiomyopathy (4) Abnormal nuclear cardiac imaging test Kirby Hitchcock MD Jul 11, 2016 11:24
[2016-07-11] MEDS ORDERED: WARFARIN SOD 6 MG TAB PO SCH (16:00)
[2016-07-11] MEDS ORDERED: FLUTICASONE PROPIONATE 50 MCG/ACT 16 GM NASAL SPRAY EACH NARE SCH (20:30)
[2016-07-11] MEDS: APIXABAN 5 MG TABLET PO SCH (21:05)
[2016-07-12] VITALS (21 sets, daily range): BP systolic 110–125; BP diastolic 64–74; PULSE 55–96; RESP 16–20; TEMP 97.4–98.8; O2SAT 94–97
[2016-07-12 04:59] LABS: INTERNATIONAL NORMALIZED RATIO 1.4 RATIO; PROTHROMBIN TIME - PATIENT 15.9 SEC (9.8-11.6)
[2016-07-12] MEDS: DIGOXIN 0.25 MG TAB PO SCH (06:04)
[2016-07-12] MEDS: DILTIAZEM HCL 60 MG TAB PO SCH ×4 (09:16→21:00)
[2016-07-12] MEDS: CARVEDILOL 6.25 MG TAB PO SCH ×2 (09:16→21:20)
[2016-07-12] MEDS: SACUBITRIL/VALSARTAN 24 MG-26 MG TAB PO SCH ×2 (09:17→21:23)
[2016-07-12] MEDS: AMOXICILLIN/CLAVULANATE K 875 MG TAB PO SCH ×2 (09:18→21:20)
[2016-07-12] MEDS: SODIUM CHLORIDE 0.9% FLUSH 5 ML FLUSH FLUSH SCH ×2 (09:18→21:20)
[2016-07-12] MEDS: APIXABAN 5 MG TABLET PO SCH (09:18)
[2016-07-12] MEDS: DOCUSATE SODIUM 100 MG CAP PO SCH ×3 (09:19→21:31)
[2016-07-12] MEDS: FUROSEMIDE 40 MG TAB PO SCH (09:19)
--- NOTE | 2016-07-12 12:17 | PD.CARD.PN ---
Subjective Subjective Remarks no complaints Objective Medications Current Medications Medications (Trade) Dose Ordered Sig/Donna Route Start Time Stop Time Status Last Admin (NS Flush) 2 ml UNSCH PRN FLUSH 07/07/16 01:15 07/07/16 15:17 (NS Flush) 2 ml BID FLUSH 07/07/16 09:00 07/12/16 09:18 (Tylenol) 650 mg Q4H PRN PO 07/07/16 01:15 07/11/16 12:06 (Colace) 100 mg Q12H PO 07/07/16 01:15 (Tylenol) 650 mg Q6H PRN PO 07/07/16 01:15 07/09/16 23:40 (Roxicodone) 5 mg Q4H PRN PO 07/07/16 01:15 (Narcan Inj) 0.4 mg UNSCH PRN IV 07/07/16 01:15 (Pravachol) 40 mg DAILY PO 07/07/16 09:00 07/11/16 10:53 (Lasix) 40 mg DAILY PO 07/08/16 09:00 07/12/16 09:19 (Augmentin) 875 mg BID PO 07/08/16 13:00 07/12/16 09:18 (Lanoxin) 0.25 mg DAILY@0600 PO 07/09/16 06:00 07/12/16 06:04 (Pill Splitter) 1 ea UNSCH PRN OTHER 07/08/16 16:00 (Coreg) 12.5 mg Q12HR PO 07/10/16 09:00 07/12/16 09:16 (Entresto 24-26 Mg) 1 tab BID PO 07/10/16 09:00 07/12/16 09:17 (Cardizem) 60 mg QID PO 07/11/16 11:00 07/12/16 09:16 (Eliquis) 5 mg BID PO 07/11/16 21:00 07/12/16 09:18 (Flonase [place]var[place] Spr) 2 spray DAILY EACH NARE 07/11/16 20:30 07/11/16 21:26 Vital Signs / I&O Vital Signs Date Time Temp Pulse Resp B/P Pulse Ox O2 Delivery O2 Flow Rate FiO2 07/12/16 07:46 86 07/12/16 07:46 97.5 86 18 110/74 95 07/12/16 07:46 95 Room Air 07/12/16 03:40 97.4 78 20 113/69 94 07/12/16 02:00 76 07/12/16 01:00 78 07/12/16 00:00 92 07/11/16 23:39 98.1 91 20 137/80 96 07/11/16 23:00 84 07/11/16 21:00 93 07/11/16 21:00 93 20 139/69 07/11/16 20:00 93 20 163/81 07/11/16 20:00 93 07/11/16 19:45 Room Air 07/11/16 19:00 97 07/11/16 19:00 97.9 97 20 154/76 94 07/11/16 18:00 88 07/11/16 17:00 54 07/11/16 16:57 97.8 63 18 120/71 96 07/11/16 16:00 64 07/11/16 13:30 18 07/11/16 13:00 99 I/O 07/11/16 07/11/16 07/11/16 07/12/16 07/12/16 07/12/16 07:00 15:00 23:00 07:00 15:00 23:00 Intake Total 600 ml 680 ml Output Total 1900 ml 1600 ml 1100 ml Balance -1300 ml -1600 ml -420 ml Intake Oral 600 ml 680 ml IV Total 0 ml 0 ml Output Urine Total 1900 ml 1600 ml 1100 ml Emesis 0 ml 0 ml # Bowel Movements 0 1 Physical Exam GENERAL: Well-nourished, well-developed patient. SKIN: Warm and dry. HEAD: Normocephalic. EYES: No scleral icterus. No injection or drainage. NECK: Supple, trachea midline. No JVD or lymphadenopathy. CARDIOVASCULAR: Irr Irr without murmurs, gallops, or rubs. RESPIRATORY: Breath sounds equal bilaterally. No accessory muscle use. GASTROINTESTINAL: Abdomen soft, non-tender, nondistended. EXTREMITIES: No cyanosis, or edema. NEUROLOGICAL: Awake, alert, and oriented x 3. Non-focal. Laboratory Laboratory Tests Test 07/12/16 03:30 Prothrombin Time 15.9 SEC Prothromb Time International 1.4 RATIO Ratio Assessment and Plan Problem List: (1) Atrial fibrillation with rapid ventricular response Assessment and Plan: Cont rate control and OAC Dr. Paras iverson for afib ablation in am (2) Systolic CHF (3) Cardiomyopathy Problem Qualifiers (1) Systolic CHF: Qualified Code: I50.22 - Chronic systolic congestive heart failure (2) Cardiomyopathy: Qualified Code: I42.0 - Dilated cardiomyopathy Kirby Hitchcock MD Jul 12, 2016 12:17
--- NOTE | 2016-07-12 12:32 | HHI.PR ---
Subjective Remarks Follow-up for atrial fibrillation, nonischemic cardiomyopathy. Patient is currently doing well. Denies any chest pain, shortness of breath or fever or chills. His heart rate goes up or with any kind of activities. He remains asymptomatic from episodic tachycardia. Objective Vitals Vital Signs Date Time Temp Pulse Resp B/P Pulse Ox O2 Delivery O2 Flow Rate FiO2 07/12/16 07:46 86 07/12/16 07:46 97.5 86 18 110/74 95 07/12/16 07:46 95 Room Air 07/12/16 03:40 97.4 78 20 113/69 94 07/12/16 02:00 76 07/12/16 01:00 78 07/12/16 00:00 92 07/11/16 23:39 98.1 91 20 137/80 96 07/11/16 23:00 84 07/11/16 21:00 93 07/11/16 21:00 93 20 139/69 07/11/16 20:00 93 20 163/81 07/11/16 20:00 93 07/11/16 19:45 Room Air 07/11/16 19:00 97 07/11/16 19:00 97.9 97 20 154/76 94 07/11/16 18:00 88 07/11/16 17:00 54 07/11/16 16:57 97.8 63 18 120/71 96 07/11/16 16:00 64 07/11/16 13:30 18 07/11/16 13:00 99 I/O 07/11/16 07/11/16 07/11/16 07/12/16 07/12/16 07/12/16 07:00 15:00 23:00 07:00 15:00 23:00 Intake Total 600 ml 680 ml Output Total 1900 ml 1600 ml 1100 ml Balance -1300 ml -1600 ml -420 ml Intake Oral 600 ml 680 ml IV Total 0 ml 0 ml Output Urine Total 1900 ml 1600 ml 1100 ml Emesis 0 ml 0 ml # Bowel Movements 0 1 Result Diagram: 07/09/16 0535 Imaging Last Impressions Chest CT 07/07/16 0000 Signed Impressions: Service Date/Time: Thursday, July 07, 2016 20:20 - CONCLUSION: 1. Tiny left and small right pleural effusions. The right is slightly larger from the prior study. 2. Bullous emphysematous changes. 3. Mild mediastinal adenopathy. 4. Coronary artery atherosclerotic calcifications. Ant Candelario Jr., MD Chest X-Ray 07/06/162157 Signed Impressions: Service Date/Time: Wednesday, July 06, 2016 22:13 - CONCLUSION: 1. Minimal basilar atelectasis. Edison Finch MD Aorta CTA 07/06/162157 Signed Impressions: Service Date/Time: Wednesday, July 06, 2016 23:19 - CONCLUSION: 1. No evidence of aortic dissection or aneurysmal dilatation. 2. Atherosclerotic changes are seen throughout the aorta. 3. A few nonspecific nodules in the right lobe of the thyroid. 4. Bilateral iliac vein stents. 5. Bullous emphysema with a very small right effusion versus pleural thickening. Dominguez Valenzuela MD Objective Remarks GENERAL: AOX3, NAD. SKIN: Warm and dry. HEAD: Normocephalic. EYES: No scleral icterus. No injection or drainage. NECK: Supple, trachea midline. No JVD or lymphadenopathy. CARDIOVASCULAR: Irreg Irreg Tachycardic without murmurs, gallops, or rubs. RESPIRATORY: Breath sounds equal bilaterally. No accessory muscle use. GASTROINTESTINAL: Abdomen soft, non-tender, nondistended. MUSCULOSKELETAL: No cyanosis, or edema. BACK: Nontender without obvious deformity. No CVA tenderness. Procedures Cardiac catheterization 07/10/2016. CONCLUSIONS 1. Normal coronary arteries. 2. Non-ischemic cardiomyopathy. RECOMMENDATIONS Continue aggressive medical management for heart failure. The patient will be consulted to EP for atrial fibrillation ablation. A/P Problem List: (1) Atrial fibrillation with rapid ventricular response ICD Code: I48.91 Status: Acute (2) Bullous emphysema ICD Code: J43.9 Status: Acute (3) Cardiomyopathy ICD Code: I42.9 Status: Acute Assessment and Plan This is a 70-year-old male with past medical history of paroxysmal atrial fibrillation, peripheral vascular disease who presented to the ER last night complaining of shortness of breath ongoing for 1 month prior to this admission on 07/07/2016. Outside nuclear stress test showed moderate-sized mid anteroseptal infarction with ischemia and inferior moderate infarction mixed with ischemia. An echocardiogram showed ejection fraction 35% with moderate LV and LA dilation. Cardiology evaluated patient and recommended ischemic workup with cardiac catheterization which was done on 07/10/2016 and shows normal coronary arteries. - Nonischemic cardiomyopathy with EF 35%. - Likely due to Atrial fibrillation. - Cardiac catheterization shows normal coronary arteries. - Continue carvedilol 12.5 mg by mouth every 12 hours, digoxin 0.25 mg by mouth daily, isosorbide mononitrate 30 mg by mouth daily, Lasix 40 mg by mouth daily - Continue Sacubitril-Valsartan BID, Imur 30mg Qday, pravastatin 40 mg daily. - Atrial fibrillation - Continue carvedilol 12.5 mg by mouth every 12 hours. - Continue Digoxin 0.25mg Qday. - Cardizem drip discontinued on 07/11/2016. - Continue Cardizem 60 mg 4 times a day by mouth. Consider switching to Cardizem ER 240mg Qday starting 07/13/2016. - Discussed with patient and his regarding anticoagulation. Patient would prefer to be on apixaban. - Continue apixaban 5 mg twice a day. - Probable atrial fibrillation ablation on 07/13/2016. - HOLD Apixaban tonight (07/12/2016) and NPO except for meds AFTER Breakfast on 07/13/2016. Full code. Apixaban 5mg BID. On hold tonight. Problem Qualifiers (1) Cardiomyopathy: Qualified Code: I42.0 - Dilated cardiomyopathy Dashawn Talbot DO Jul 12, 2016 12:32 pm
[2016-07-12] MEDS: PRAVASTATIN SOD 40 MG TAB PO SCH (21:20)
[2016-07-12] MEDS: FLUTICASONE PROPIONATE 50 MCG/ACT 16 GM NASAL SPRAY EACH NARE SCH (21:20)
[2016-07-13] VITALS (25 sets, daily range): BP systolic 110–140; BP diastolic 61–77; PULSE 65–103; RESP 16–20; TEMP 97.6–98.7; O2SAT 94–100
[2016-07-13] MEDS: DIGOXIN 0.25 MG TAB PO SCH (05:57)
[2016-07-13] MEDS: AMOXICILLIN/CLAVULANATE K 875 MG TAB PO SCH ×2 (09:00→21:21)
[2016-07-13] MEDS: AMIODARONE 200 MG TAB PO SCH ×2 (09:15→20:14)
[2016-07-13] MEDS: FUROSEMIDE 40 MG TAB PO SCH (10:34)
[2016-07-13] MEDS: CARVEDILOL 6.25 MG TAB PO SCH ×2 (10:34→21:25)
[2016-07-13] MEDS: APIXABAN 5 MG TABLET PO SCH ×2 (10:34→21:24)
[2016-07-13] MEDS: SACUBITRIL/VALSARTAN 24 MG-26 MG TAB PO SCH ×2 (10:34→21:21)
[2016-07-13] MEDS: SODIUM CHLORIDE 0.9% FLUSH 5 ML FLUSH FLUSH SCH ×2 (10:35→21:27)
--- NOTE | 2016-07-13 10:35 | HHI.PR ---
Subjective Remarks The pt was resting comfortably in bed. His family was at the bedside. He was aware the ablation would occur tomorrow afternoon. He endorsed some difficulty sleeping. He denied any chest pain or palpitations. Has been ambulating well. No constipation. Discussed with nursing. Objective Vitals Vital Signs Date Time Temp Pulse Resp B/P Pulse Ox O2 Delivery O2 Flow Rate FiO2 07/13/16 08:45 98.6 82 18 133/61 100 07/13/16 08:45 100 Room Air 07/13/16 07:00 80 07/13/16 06:00 78 07/13/16 05:00 78 07/13/16 04:00 98.7 69 16 140/69 95 07/13/16 04:00 74 07/13/16 02:00 75 07/13/16 01:00 65 07/13/16 00:00 98.7 70 16 130/77 94 07/13/16 00:00 68 07/12/16 23:00 60 07/12/16 22:00 59 07/12/16 20:00 97 Room Air 07/12/16 20:00 55 07/12/16 20:00 98.8 55 16 115/64 97 07/12/16 19:00 73 07/12/16 18:05 88 07/12/16 17:00 90 07/12/16 16:00 84 07/12/16 15:30 98.0 88 18 111/65 97 07/12/16 15:30 88 07/12/16 14:00 90 07/12/16 13:00 96 07/12/16 12:00 95 07/12/16 11:45 90 07/12/16 11:45 97.8 90 18 125/72 96 07/12/16 11:00 86 I/O 07/12/16 07/12/16 07/12/16 07/13/16 07/13/16 07/13/16 07:00 15:00 23:00 07:00 15:00 23:00 Intake Total 680 ml 960 ml 600 ml Output Total 1100 ml 2000 ml Balance -420 ml -1040 ml 600 ml Intake Oral 680 ml 960 ml 600 ml IV Total 0 ml Output Urine Total 1100 ml 2000 ml Emesis 0 ml # Voids 4 # Bowel Movements 1 2 Result Diagram: 07/09/16 0535 Imaging Last Impressions Chest CT 07/07/16 0000 Signed Impressions: Service Date/Time: Thursday, July 07, 2016 20:20 - CONCLUSION: 1. Tiny left and small right pleural effusions. The right is slightly larger from the prior study. 2. Bullous emphysematous changes. 3. Mild mediastinal adenopathy. 4. Coronary artery atherosclerotic calcifications. Ant Candelario Jr., MD Chest X-Ray 07/06/162157 Signed Impressions: Service Date/Time: Wednesday, July 06, 2016 22:13 - CONCLUSION: 1. Minimal basilar atelectasis. Edison Finch MD Aorta CTA [id number]/06/162157 Signed Impressions: Service Date/Time: Wednesday, July 06, 2016 23:19 - CONCLUSION: 1. No evidence of aortic dissection or aneurysmal dilatation. 2. Atherosclerotic changes are seen throughout the aorta. 3. A few nonspecific nodules in the right lobe of the thyroid. 4. Bilateral iliac vein stents. 5. Bullous emphysema with a very small right effusion versus pleural thickening. Dominguez Valenzuela MD Objective Remarks GENERAL: Alert and oriented X3, NAD. SKIN: Warm and dry. HEAD: Normocephalic. EYES: No scleral icterus. No injection or drainage. NECK: Supple, trachea midline. No JVD or lymphadenopathy. CARDIOVASCULAR: Irregularly irregular rhythm without murmurs, gallops, or rubs. RESPIRATORY: Breath sounds equal bilaterally. No accessory muscle use. GASTROINTESTINAL: Abdomen soft, non-tender, nondistended. MUSCULOSKELETAL: No cyanosis, or edema. BACK: Nontender without obvious deformity. No CVA tenderness. NEURO: No gross deficits. PSYCH: Mood and affect appropriate. Procedures Cardiac catheterization 07/10/2016. CONCLUSIONS 1. Normal coronary arteries. 2. Non-ischemic cardiomyopathy. RECOMMENDATIONS Continue aggressive medical management for heart failure. The patient will be consulted to EP for atrial fibrillation ablation. Medications and IVs Current Medications Medications (Trade) Dose Ordered Sig/Donna Route Start Time Stop Time Status Last Admin (NS Flush) 2 ml UNSCH PRN FLUSH 07/07/16 01:15 07/07/16 15:17 (NS Flush) 2 ml BID FLUSH 07/07/16 09:00 07/13/16 10:35 (Tylenol) 650 mg Q4H PRN PO 07/07/16 01:15 07/11/16 12:06 (Colace) 100 mg Q12H PO 07/07/16 01:15 (Tylenol) 650 mg Q6H PRN PO 07/07/16 01:15 07/09/16 23:40 (Roxicodone) 5 mg Q4H PRN PO 07/07/16 01:15 (Narcan Inj) 0.4 mg UNSCH PRN IV 07/07/16 01:15 (Lasix) 40 mg DAILY PO 07/08/16 09:00 07/13/16 10:34 (Augmentin) 875 mg BID PO 07/08/16 13:00 07/13/16 09:00 (Pill Splitter) 1 ea UNSCH PRN OTHER 07/08/16 16:00 (Coreg) 12.5 mg Q12HR PO 07/10/16 09:00 07/13/16 10:34 (Entresto 24-26 Mg) 1 tab BID PO 07/10/16 09:00 07/13/16 10:34 (Flonase Alvarado Spr) 2 spray HS EACH NARE 07/12/16 21:00 07/12/16 21:20 (Pravachol) 40 mg HS PO 07/12/16 21:00 07/12/16 21:20 (Cordarone) 400 mg Q12HR PO 07/13/16 09:15 (Eliquis) 5 mg BID PO 07/13/16 09:30 07/13/16 10:34 A/P Problem List: (1) Atrial fibrillation with rapid ventricular response ICD Code: I48.91 Status: Acute (2) Bullous emphysema ICD Code: J43.9 Status: Acute (3) Cardiomyopathy ICD Code: I42.9 Status: Acute Assessment and Plan This is a 70-year-old male with past medical history of paroxysmal atrial fibrillation, peripheral vascular disease who presented to the ER complaining of shortness of breath ongoing for 1 month prior to this admission on 07/07/2016. Outside nuclear stress test showed moderate-sized mid anteroseptal infarction with ischemia and inferior moderate infarction mixed with ischemia. An echocardiogram showed ejection fraction 35% with moderate LV and LA dilation. Cardiology evaluated patient and recommended ischemic workup with cardiac catheterization which was done on 07/10/2016 and showed normal coronary arteries. Nonischemic cardiomyopathy EF 35%. Likely due to Atrial fibrillation. Cardiac catheterization shows normal coronary arteries. - Continue carvedilol 12.5 mg by mouth every 12 hours, digoxin 0.25 mg by mouth daily, isosorbide mononitrate 30 mg by mouth daily, Lasix 40 mg by mouth daily. - Continue Sacubitril-Valsartan BID, Imur 30mg Qday, pravastatin 40 mg daily. Atrial fibrillation S/p Cardizem gtt. - Continue carvedilol 12.5 mg by mouth every 12 hours. - Continue Digoxin 0.25mg Qday. - Continue Cardizem 60 mg 4 times a day by mouth. Consider switching to Cardizem ER 240mg Qday. Cardiology switched to amiodarone but pt says he had a bad experience with it. Will follow up recommendations. - Discussed with patient and his regarding anticoagulation. Patient would prefer to be on apixaban. Continue apixaban 5 mg twice a day. - Probable atrial fibrillation ablation on 07/14/2016. PPx: Apixaban 5mg BID. Discharge Planning Awaiting ablation. Problem Qualifiers (1) Cardiomyopathy: Qualified Code: I42.0 - Dilated cardiomyopathy Austen Nelson DO Jul 13, 2016 10:35
[2016-07-13] MEDS ORDERED: TEMAZEPAM 15 MG CAP PO PRN (11:30)
[2016-07-13 12:16] LABS: HEMATOCRIT 45.6 % (39.0-51.0); MEAN CELL VOLUME 94.3 FL (80.0-100.0); MEAN CORPUSCULAR HEMOGLOBIN 32.1 PG (27.0-34.0); PLATELET COUNT 292 TH/MM3 (150-450); RED BLOOD COUNT 4.84 MIL/MM3 (4.50-5.90); RED CELL DISTRIBUTION WIDTH 13.9 % (11.6-17.2); REVIEW FLAG FINAL; WHITE BLOOD COUNT 10.8 TH/MM3 (4.0-11.0)
[2016-07-13 12:37] LABS: BICARBONATE 28.2 MEQ/L (21.0-32.0); MAGNESIUM 2.2 MG/DL (1.5-2.5); POTASSIUM 3.9 MEQ/L (3.5-5.1)
--- NOTE | 2016-07-13 12:42 | MB ---
cc: MARCY NUNEZ M.D. DATE OF CONSULTATION: 07/13/2016 REASON FOR CONSULTATION Atrial fibrillation, unable to control with medication. HISTORY OF PRESENT ILLNESS Mr. Watkins is a 71-year-old gentleman with a history of atrial fibrillation for the past 13 years. He had cardioversion in the past, back on and off in atrial fibrillation. He has previous hospitalization. He was recently admitted a week ago due to atrial fibrillation with rapid ventricular response. He was found to have heart failure. At this time the ejection fraction dropped to 35%. He is on Cardizem, digoxin and Coreg, and despite that the heart rate is unable to control. He is on Eliquis. I was consulted for further evaluation and management. The chart was reviewed. The patient was evaluated. ALLERGIES None. SOCIAL HISTORY Negative for smoking and drinking. FAMILY HISTORY Noncontributory to his current medical condition. MEDICATIONS 1. Eliquis 5 mg twice a day. 2. Cardizem 60 mg q.6h. 3. Coreg 12.5 mg twice a day. 4. Digoxin. 5. Amoxicillin/clavulanic acid 875 mg twice a day. 6. Pravachol. 7. Entresto was initiated at . REVIEW OF SYSTEMS He refers tiredness and palpitations with minimal activity, but no chest pain, no chest discomfort, no fevers, some shortness of breath. PHYSICAL EXAMINATION GENERAL: Alert, fully oriented. VITAL SIGNS: Blood pressure this morning 140/69, pulse 74. While the patient was awake and talking to us his heart rate was around 115. Respiratory rate 18. LUNGS: Ventilated. CARDIOVASCULAR: S1, S2, irregular, tachycardic. ABDOMEN: Obese. No mass. No bruit. EXTREMITIES: No edema. EKG Electrocardiogram is showing atrial fibrillation, left bundle branch block, diffuse ST changes. LABORATORY Hemoglobin 12.9, white blood cell count 12.0. INR is 1.4. Potassium 3.8, creatinine 0.80. BNP was only 400 on hospitalization. ASSESSMENT AND RECOMMENDATION I discussed the case extensively with Mr. Watkins and his . He has atrial fibrillation. Heart rate is very difficult to control. The gentleman was having atrial fibrillation for the past 13 years, but getting worse in the last couple of months. There is no echocardiogram available at this point. His ejection fraction is 35%. He is on Coreg, Cardizem and digoxin. Despite that the heart rate is still high. I had a long conversation with them. I explained to them because of the patient's longstanding atrial fibrillation, he will need at least two ablations and also medication. At this point I am going to discontinue the Cardizem. I am going to discontinue digoxin. I am going to add amiodarone. I am going to resume the Eliquis. Keep the patient n.p.o. after breakfast tomorrow and anticipate ablation tomorrow afternoon. The patient and his understand and agree to proceed. Marcy Nunez MD HS/BT /9:21 AM /12:29 PM
[2016-07-13] MEDS: DOCUSATE SODIUM 100 MG CAP PO SCH (13:15)
[2016-07-13] MEDS: PRAVASTATIN SOD 40 MG TAB PO SCH (21:24)
[2016-07-14] VITALS (25 sets, daily range): BP systolic 102–130; BP diastolic 66–81; PULSE 80–105; RESP 18–22; TEMP 97.6–98.2; O2SAT 94–97
[2016-07-14] MEDS: DOCUSATE SODIUM 100 MG CAP PO SCH ×2 (01:15→13:15)
[2016-07-14] MEDS: AMIODARONE 200 MG TAB PO SCH (09:00)
[2016-07-14] MEDS: APIXABAN 5 MG TABLET PO SCH ×3 (09:00→21:11)
[2016-07-14] MEDS: AMOXICILLIN/CLAVULANATE K 875 MG TAB PO SCH ×2 (09:00→21:11)
[2016-07-14] MEDS: CARVEDILOL 6.25 MG TAB PO SCH ×2 (09:25→21:10)
[2016-07-14] MEDS: SACUBITRIL/VALSARTAN 24 MG-26 MG TAB PO SCH ×2 (09:25→21:11)
[2016-07-14] MEDS: FUROSEMIDE 40 MG TAB PO SCH (09:25)
[2016-07-14] MEDS: SODIUM CHLORIDE 0.9% FLUSH 5 ML FLUSH FLUSH SCH ×2 (09:26→21:11)
[2016-07-14] MEDS: DILTIAZEM HCL 60 MG TAB PO SCH ×2 (12:30→18:00)
--- NOTE | 2016-07-14 13:22 | HHI.PR ---
Subjective Remarks The patient was frustrated that he hasn't been able to eat all day since his procedure is not scheduled until 4 PM. Otherwise no acute complaints. No chest pain or palpitations. He does complain of sinus congestion. 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 Discussed with nursing. Objective Vitals Vital Signs Date Time Temp Pulse Resp B/P Pulse Ox O2 Delivery O2 Flow Rate FiO2 07/14/16 11:00 95 07/14/16 10:00 84 07/14/16 09:00 83 07/14/16 08:00 86 07/14/16 07:00 83 07/14/16 07:00 94 Room Air 07/14/16 07:00 97.6 88 18 114/77 94 07/14/16 06:18 83 07/14/16 05:00 80 07/14/16 04:10 88 07/14/16 04:00 98.0 90 18 130/81 96 07/14/16 03:00 88 07/14/16 02:00 92 07/14/16 01:00 94 07/14/16 00:00 91 07/14/16 00:00 98.0 86 18 115/71 96 07/13/16 23:00 96 07/13/16 22:00 103 07/13/16 21:00 98 07/13/16 20:00 98.0 97 18 110/69 96 07/13/16 20:00 99 07/13/16 20:00 96 Room Air 07/13/16 19:00 100 07/13/16 18:00 102 07/13/16 17:00 98 07/13/16 16:00 95 07/13/16 15:00 97.6 88 20 137/76 95 07/13/16 15:00 90 07/13/16 14:00 85 I/O 07/13/16 07/13/16 07/13/16 07/14/16 07/14/16 07/14/16 07:00 15:00 23:00 07:00 15:00 23:00 Intake Total 600 ml 1680 ml 240 ml Output Total 1225 ml Balance 600 ml 455 ml 240 ml Intake Oral 600 ml 1680 ml 240 ml Output Urine Total 1225 ml # Voids 4 2 # Bowel Movements 0 Result Diagram: 07/13/16 1152 07/13/16 1152 Imaging Last Impressions Chest CT 07/07/16 0000 Signed Impressions: Service Date/Time: Thursday, July 07, 2016 20:20 - CONCLUSION: 1. Tiny left and small right pleural effusions. The right is slightly larger from the prior study. 2. Bullous emphysematous changes. 3. Mild mediastinal adenopathy. 4. Coronary artery atherosclerotic calcifications. Ant Candelario Jr., MD Chest X-Ray 07/06/162157 Signed Impressions: Service Date/Time: Wednesday, July 06, 2016 22:13 - CONCLUSION: 1. Minimal basilar atelectasis. Edison Finch MD Aorta CTA [id number]/06/162157 Signed Impressions: Service Date/Time: Wednesday, July 06, 2016 23:19 - CONCLUSION: 1. No evidence of aortic dissection or aneurysmal dilatation. 2. Atherosclerotic changes are seen throughout the aorta. 3. A few nonspecific nodules in the right lobe of the thyroid. 4. Bilateral iliac vein stents. 5. Bullous emphysema with a very small right effusion versus pleural thickening. Dominguez Valenzuela MD Objective Remarks GENERAL: Alert and oriented X3, NAD. SKIN: Warm and dry. HEAD: Normocephalic. EYES: No scleral icterus. No injection or drainage. NECK: Supple, trachea midline. No JVD or lymphadenopathy. CARDIOVASCULAR: Irregularly irregular rhythm without murmurs, gallops, or rubs. RESPIRATORY: Breath sounds equal bilaterally. No accessory muscle use. GASTROINTESTINAL: Abdomen soft, non-tender, nondistended. MUSCULOSKELETAL: No cyanosis, or edema. BACK: Nontender without obvious deformity. No CVA tenderness. NEURO: No gross deficits. PSYCH: Mood and affect appropriate. Procedures Cardiac catheterization 07/10/2016. CONCLUSIONS 1. Normal coronary arteries. 2. Non-ischemic cardiomyopathy. RECOMMENDATIONS Continue aggressive medical management for heart failure. The patient will be consulted to EP for atrial fibrillation ablation. Medications and IVs Current Medications Medications (Trade) Dose Ordered Sig/Donna Route Start Time Stop Time Status Last Admin (NS Flush) 2 ml UNSCH PRN FLUSH 07/07/16 01:15 07/07/16 15:17 (NS Flush) 2 ml BID FLUSH 07/07/16 09:00 07/14/16 09:26 (Tylenol) 650 mg Q4H PRN PO 07/07/16 01:15 07/11/16 12:06 (Colace) 100 mg Q12H PO 07/07/16 01:15 (Tylenol) 650 mg Q6H PRN PO 07/07/16 01:15 07/09/16 23:40 (Roxicodone) 5 mg Q4H PRN PO 07/07/16 01:15 (Narcan Inj) 0.4 mg UNSCH PRN IV 07/07/16 01:15 (Lasix) 40 mg DAILY PO 07/08/16 09:00 07/14/16 09:25 (Augmentin) 875 mg BID PO 07/08/16 13:00 07/13/16 21:21 (Pill Splitter) 1 ea UNSCH PRN OTHER 07/08/16 16:00 (Coreg) 12.5 mg Q12HR PO 07/10/16 09:00 07/14/16 09:25 (Entresto 24-26 Mg) 1 tab BID PO 07/10/16 09:00 07/14/16 09:25 (Flonase Alvarado Spr) 2 spray HS EACH NARE 07/12/16 21:00 07/12/16 21:20 (Pravachol) 40 mg HS PO 07/12/16 21:00 07/13/16 21:24 (Cordarone) 400 mg Q12HR PO 07/13/16 09:15 Hold (Eliquis) 5 mg BID PO 07/13/16 09:30 07/13/16 21:24 (Restoril) 15 mg HS PRN PO 07/13/16 11:30 (Cardizem) 60 mg Q6HR PO 07/14/16 12:30 A/P Problem List: (1) Atrial fibrillation with rapid ventricular response ICD Code: I48.91 Status: Acute (2) Bullous emphysema ICD Code: J43.9 Status: Acute (3) Cardiomyopathy ICD Code: I42.9 Status: Acute Assessment and Plan This is a 70-year-old male with past medical history of paroxysmal atrial fibrillation, peripheral vascular disease who presented to the ER complaining of shortness of breath ongoing for 1 month prior to this admission on 07/07/2016. Outside nuclear stress test showed moderate-sized mid anteroseptal infarction with ischemia and inferior moderate infarction mixed with ischemia. An echocardiogram showed ejection fraction 35% with moderate LV and LA dilation. Cardiology evaluated the patient and recommended ischemic workup with cardiac catheterization which was done on 07/10/2016 and showed normal coronary arteries. Nonischemic cardiomyopathy EF 35%. Likely due to Atrial fibrillation. Cardiac catheterization shows normal coronary arteries. - Continue carvedilol 12.5 mg by mouth every 12 hours, digoxin 0.25 mg by mouth daily, isosorbide mononitrate 30 mg by mouth daily, Lasix 40 mg by mouth daily. - Continue Sacubitril-Valsartan BID, Imur 30mg Qday, pravastatin 40 mg daily. Atrial fibrillation S/p Cardizem gtt. - Continue carvedilol 12.5 mg by mouth every 12 hours. - Continue Cardizem 60 mg 4 times a day by mouth. Consider switching to Cardizem ER 240mg Qday. Cardiology switched to amiodarone but pt says he had a bad experience with it. Will follow up recommendations. - Discussed with patient and his regarding anticoagulation. Patient would prefer to be on apixaban. Continue apixaban 5 mg twice a day. - atrial fibrillation ablation planned for today. Sinusitis Chronic problem. The patient endorses significant congestion and postnasal drip. - Continue Augmentin. PPx: Apixaban 5mg BID. Discharge Planning Awaiting ablation. Problem Qualifiers (1) Cardiomyopathy: Qualified Code: I42.0 - Dilated cardiomyopathy Austen Nelson DO Jul 14, 2016 13:22
[2016-07-14] MEDS: PRAVASTATIN SOD 40 MG TAB PO SCH (21:10)
[2016-07-14] MEDS: FLUTICASONE PROPIONATE 50 MCG/ACT 16 GM NASAL SPRAY EACH NARE SCH (21:13)
[2016-07-15] VITALS (22 sets, daily range): BP systolic 97–131; BP diastolic 57–76; PULSE 39–100; RESP 18–20; TEMP 97.4–98.2; O2SAT 94–97
[2016-07-15] MEDS: DILTIAZEM HCL 60 MG TAB PO SCH ×2 (00:29→06:00)
[2016-07-15] MEDS: FLUTICASONE PROPIONATE 50 MCG/ACT 16 GM NASAL SPRAY EACH NARE SCH ×2 (00:31→20:48)
[2016-07-15] MEDS: DOCUSATE SODIUM 100 MG CAP PO SCH ×3 (01:15→23:45)
[2016-07-15] MEDS: AMOXICILLIN/CLAVULANATE K 875 MG TAB PO SCH ×2 (09:00→20:45)
[2016-07-15] MEDS: APIXABAN 5 MG TABLET PO SCH ×2 (09:00→20:46)
[2016-07-15] MEDS: FUROSEMIDE 40 MG TAB PO SCH (09:24)
[2016-07-15] MEDS: SODIUM CHLORIDE 0.9% FLUSH 5 ML FLUSH FLUSH SCH ×2 (09:28→20:46)
[2016-07-15] MEDS: SACUBITRIL/VALSARTAN 24 MG-26 MG TAB PO SCH ×2 (09:35→20:44)
[2016-07-15] MEDS: CARVEDILOL 6.25 MG TAB PO SCH ×2 (09:59→20:45)
--- NOTE | 2016-07-15 10:46 | HHI.PR ---
Subjective Remarks The patient was anticipating the ablation later today. He said he had an episode last night where his heart rate was in the low 40s and high 30s. He felt a little lightheaded. Discussed with nursing. Objective Vitals Vital Signs Date Time Temp Pulse Resp B/P Pulse Ox O2 Delivery O2 Flow Rate FiO2 07/15/16 06:00 67 07/15/16 05:12 63 07/15/16 04:00 98.2 39 18 97/57 96 07/15/16 04:00 96 Room Air 07/15/16 04:00 56 07/15/16 03:30 39 07/15/16 02:05 71 07/15/16 01:00 71 07/15/16 00:32 98.2 75 18 117/64 96 07/15/16 00:00 100 07/15/16 00:00 96 Room Air 07/14/16 23:00 97 07/14/16 22:00 100 07/14/16 21:00 105 07/14/16 20:00 96 Room Air 07/14/16 20:00 100 07/14/16 19:00 101 07/14/16 18:00 81 07/14/16 17:00 84 07/14/16 16:00 83 07/14/16 15:00 98.2 92 20 115/66 97 07/14/16 15:00 91 07/14/16 14:00 91 07/14/16 13:00 91 07/14/16 12:00 89 07/14/16 11:00 97.6 89 22 102/73 95 07/14/16 11:00 95 I/O 07/14/16 07/14/16 07/14/16 07/15/16 07/15/16 07/15/16 07:00 15:00 23:00 07:00 15:00 23:00 Intake Total 240 ml 0 ml 420 ml Balance 240 ml 0 ml 420 ml Intake Oral 240 ml 0 ml 420 ml # Voids 2 4 2 # Bowel Movements 0 Result Diagram: 07/13/16 1152 07/13/16 1152 Imaging Last Impressions Chest CT 07/07/16 0000 Signed Impressions: Service Date/Time: Thursday, July 07, 2016 20:20 - CONCLUSION: 1. Tiny left and small right pleural effusions. The right is slightly larger from the prior study. 2. Bullous emphysematous changes. 3. Mild mediastinal adenopathy. 4. Coronary artery atherosclerotic calcifications. Ant Candelario Jr., MD Chest X-Ray 07/06/162157 Signed Impressions: Service Date/Time: Wednesday, July 06, 2016 22:13 - CONCLUSION: 1. Minimal basilar atelectasis. Edison Finch MD Aorta CTA [id number]/06/162157 Signed Impressions: Service Date/Time: Wednesday, July 06, 2016 23:19 - CONCLUSION: 1. No evidence of aortic dissection or aneurysmal dilatation. 2. Atherosclerotic changes are seen throughout the aorta. 3. A few nonspecific nodules in the right lobe of the thyroid. 4. Bilateral iliac vein stents. 5. Bullous emphysema with a very small right effusion versus pleural thickening. Dominguez Valenzuela MD Objective Remarks GENERAL: Alert and oriented X3, NAD. SKIN: Warm and dry. HEAD: Normocephalic. EYES: No scleral icterus. No injection or drainage. NECK: Supple, trachea midline. No JVD or lymphadenopathy. CARDIOVASCULAR: Irregularly irregular rhythm without murmurs, gallops, or rubs. RESPIRATORY: Breath sounds equal bilaterally. No accessory muscle use. GASTROINTESTINAL: Abdomen soft, non-tender, nondistended. MUSCULOSKELETAL: No cyanosis, or edema. BACK: Nontender without obvious deformity. No CVA tenderness. NEURO: No gross deficits. PSYCH: Mood and affect appropriate. Procedures Cardiac catheterization 07/10/2016. CONCLUSIONS 1. Normal coronary arteries. 2. Non-ischemic cardiomyopathy. RECOMMENDATIONS Continue aggressive medical management for heart failure. The patient will be consulted to EP for atrial fibrillation ablation. Medications and IVs Current Medications Medications (Trade) Dose Ordered Sig/Donna Route Start Time Stop Time Status Last Admin (NS Flush) 2 ml UNSCH PRN FLUSH 07/07/16 01:15 07/07/16 15:17 (NS Flush) 2 ml BID FLUSH 07/07/16 09:00 07/15/16 09:28 (Tylenol) 650 mg Q4H PRN PO 07/07/16 01:15 07/11/16 12:06 (Colace) 100 mg Q12H PO 07/07/16 01:15 (Tylenol) 650 mg Q6H PRN PO 07/07/16 01:15 07/09/16 23:40 (Roxicodone) 5 mg Q4H PRN PO 07/07/16 01:15 (Narcan Inj) 0.4 mg UNSCH PRN IV 07/07/16 01:15 (Lasix) 40 mg DAILY PO 07/08/16 09:00 07/15/16 09:24 (Augmentin) 875 mg BID PO 07/08/16 13:00 07/14/16 21:11 (Pill Splitter) 1 ea UNSCH PRN OTHER 07/08/16 16:00 (Coreg) 12.5 mg Q12HR PO 07/10/16 09:00 07/15/16 09:59 (Entresto 24-26 Mg) 1 tab BID PO 07/10/16 09:00 07/15/16 09:35 (Flonase Alvarado Spr) 2 spray HS EACH NARE 07/12/16 21:00 07/15/16 00:31 (Pravachol) 40 mg HS PO 07/12/16 21:00 07/14/16 21:10 (Cordarone) 400 mg Q12HR PO 07/13/16 09:15 Hold (Eliquis) 5 mg BID PO 07/13/16 09:30 07/14/16 21:11 (Restoril) 15 mg HS PRN PO 07/13/16 11:30 (Cardizem) 60 mg Q6HR PO 07/14/16 12:30 07/15/16 00:29 A/P Problem List: (1) Atrial fibrillation with rapid ventricular response ICD Code: I48.91 Status: Acute (2) Bullous emphysema ICD Code: J43.9 Status: Acute (3) Cardiomyopathy ICD Code: I42.9 Status: Acute Assessment and Plan This is a 70-year-old male with past medical history of paroxysmal atrial fibrillation, peripheral vascular disease who presented to the ER complaining of shortness of breath ongoing for 1 month prior to this admission on 07/07/2016. Outside nuclear stress test showed moderate-sized mid anteroseptal infarction with ischemia and inferior moderate infarction mixed with ischemia. An echocardiogram showed ejection fraction 35% with moderate LV and LA dilation. Cardiology evaluated the patient and recommended ischemic workup with cardiac catheterization which was done on 07/10/2016 and showed normal coronary arteries. Nonischemic cardiomyopathy EF 35%. Likely due to Atrial fibrillation. Cardiac catheterization shows normal coronary arteries. - Continue carvedilol 12.5 mg by mouth every 12 hours, isosorbide mononitrate 30 mg by mouth daily, Lasix 40 mg by mouth daily. - Continue Sacubitril-Valsartan BID, Imdur 30mg Qday, pravastatin 40 mg daily. Atrial fibrillation S/p Cardizem gtt. - Continue carvedilol 12.5 mg by mouth every 12 hours. - reduce Cardizem to 30 mg 4 times a day. Consider switching to Cardizem ER 120mg Qday. Cardiology switched to amiodarone but pt says he had a bad experience with it. Will follow up recommendations. - Discussed with patient and his regarding anticoagulation. Patient would prefer to be on apixaban. Continue apixaban 5 mg twice a day. - atrial fibrillation ablation planned for today. Sinusitis Chronic problem. The patient endorses significant congestion and postnasal drip. - Continue Augmentin to complete a 10 day course. PPx: Apixaban 5mg BID. Discharge Planning Awaiting ablation. Problem Qualifiers (1) Cardiomyopathy: Qualified Code: I42.0 - Dilated cardiomyopathy Austen Nelson DO Jul 15, 2016 10:46
[2016-07-15] MEDS: DILTIAZEM HCL 30 MG TAB PO SCH ×3 (12:33→23:45)
--- NOTE | 2016-07-15 18:50 | HHI.PR ---
Subjective Remarks Tired Objective Vital Signs Date Time Temp Pulse Resp B/P Pulse Ox O2 Delivery O2 Flow Rate FiO2 07/15/16 15:51 76 07/15/16 15:00 97.7 80 18 131/60 96 07/15/16 14:00 82 07/15/16 12:03 67 07/15/16 11:00 97.4 80 20 106/76 95 07/15/16 11:00 97 07/15/16 10:00 74 07/15/16 09:00 Room Air 07/15/16 09:00 97.7 80 18 116/68 94 07/15/16 09:00 76 07/15/16 08:00 85 07/15/16 07:00 67 07/15/16 06:00 67 07/15/16 05:12 63 07/15/16 04:00 98.2 39 18 97/57 96 07/15/16 04:00 96 Room Air 07/15/16 04:00 56 07/15/16 03:30 39 07/15/16 02:05 71 07/15/16 01:00 71 07/15/16 00:32 98.2 75 18 117/64 96 07/15/16 00:00 100 07/15/16 00:00 96 Room Air 07/14/16 23:00 97 07/14/16 22:00 100 07/14/16 21:00 105 07/14/16 20:00 96 Room Air 07/14/16 20:00 100 07/14/16 19:00 101 I/O 07/14/16 07/14/16 07/14/16 07/15/16 07/15/16 07/15/16 07:00 15:00 23:00 07:00 15:00 23:00 Intake Total 240 ml 0 ml 420 ml Balance 240 ml 0 ml 420 ml Intake Oral 240 ml 0 ml 420 ml # Voids 2 4 2 # Bowel Movements 0 Result Diagram: 07/13/16 1152 07/13/16 1152 Imaging Alert, fully oriented Lungs: ventilated Heart: S1, S2 irregular, Abdomen: soft, no mass Ext: no edema Last Impressions Chest CT 07/07/16 0000 Signed Impressions: Service Date/Time: Thursday, July 07, 2016 20:20 - CONCLUSION: 1. Tiny left and small right pleural effusions. The right is slightly larger from the prior study. 2. Bullous emphysematous changes. 3. Mild mediastinal adenopathy. 4. Coronary artery atherosclerotic calcifications. Ant Candelario Jr., MD Chest X-Ray [id number]/[id number] Signed Impressions: Service Date/Time: Wednesday, July 06, 2016 22:13 - CONCLUSION: 1. Minimal basilar atelectasis. Edison Finch MD Aorta CTA [id number] Signed Impressions: Service Date/Time: Wednesday, July 06, 2016 23:19 - CONCLUSION: 1. No evidence of aortic dissection or aneurysmal dilatation. 2. Atherosclerotic changes are seen throughout the aorta. 3. A few nonspecific nodules in the right lobe of the thyroid. 4. Bilateral iliac vein stents. 5. Bullous emphysema with a very small right effusion versus pleural thickening. Dominguez Valenzuela MD Current Medications Medications (Trade) Dose Ordered Sig/Donna Route Start Time Stop Time Status Last Admin (NS Flush) 2 ml UNSCH PRN FLUSH 07/07/16 01:15 07/07/16 15:17 (NS Flush) 2 ml BID FLUSH 07/07/16 09:00 07/15/16 09:28 (Tylenol) 650 mg Q4H PRN PO 07/07/16 01:15 07/11/16 12:06 (Colace) 100 mg Q12H PO 07/07/16 01:15 (Tylenol) 650 mg Q6H PRN PO 07/07/16 01:15 07/09/16 23:40 (Roxicodone) 5 mg Q4H PRN PO 07/07/16 01:15 (Narcan Inj) 0.4 mg UNSCH PRN IV 07/07/16 01:15 (Lasix) 40 mg DAILY PO 07/08/16 09:00 07/15/16 09:24 (Augmentin) 875 mg BID PO 07/08/16 13:00 07/14/16 21:11 (Pill Splitter) 1 ea UNSCH PRN OTHER 07/08/16 16:00 (Coreg) 12.5 mg Q12HR PO 07/10/16 09:00 07/15/16 09:59 (Entresto 24-26 Mg) 1 tab BID PO 07/10/16 09:00 07/15/16 09:35 (Flonase Alvarado Spr) 2 spray HS EACH NARE 07/12/16 21:00 07/15/16 00:31 (Pravachol) 40 mg HS PO 07/12/16 21:00 07/14/16 21:10 (Cordarone) 400 mg Q12HR PO 07/13/16 09:15 Hold (Eliquis) 5 mg BID PO 07/13/16 09:30 07/14/16 21:11 (Restoril) 15 mg HS PRN PO 07/13/16 11:30 (Cardizem) 30 mg Q6HR PO 07/15/16 12:00 07/15/16 12:33 Assessment and Plan Problem List: (1) Atrial fibrillation with rapid ventricular response Status: Acute Plan: Atrial fib with FVR. Procedure cancel today Case discussed with family Yesterday, case had to be rescheduled because staff unavailable. Procedure will be performed tomorrow AM Consent obtained (2) Systolic CHF Status: Acute Plan: EF 35%. Stable Heart failure may improve with rate control Problem Qualifiers (1) Systolic CHF: Qualified Code: I50.22 - Chronic systolic congestive heart failure Piter Crain MD Jul 15, 2016 18:50
[2016-07-15] MEDS: PRAVASTATIN SOD 40 MG TAB PO SCH (20:45)
[2016-07-16] VITALS (17 sets, daily range): BP systolic 102–137; BP diastolic 63–72; PULSE 62–92; RESP 17–20; TEMP 97.8–98.6; O2SAT 96–97
[2016-07-16] MEDS: DILTIAZEM HCL 30 MG TAB PO SCH (06:32)
[2016-07-16] MEDS ORDERED: HEPARIN-D5W INJ 250 ML ONE (07:01)
[2016-07-16] MEDS ORDERED: ISOPROTERENOL HCL 1 MG/5 ML AMP ONE (07:01)
[2016-07-16] MEDS ORDERED: HEPARIN-NS/PF INJ 500 ML ONE (07:17)
[2016-07-16] MEDS ORDERED: ONDANSETRON HCL 4 MG/2 ML VIAL IV PUSH ONE (07:25)
[2016-07-16] MEDS ORDERED: SODIUM CHLORID 0.9% 500 ML BAG IV ONE (07:25)
[2016-07-16] MEDS ORDERED: PHENYLEPH/NS 1000 MCG/10 ML SYR IV ONE (07:25)
[2016-07-16] MEDS ORDERED: PROPOFOL 200 MG/20 ML AMP IV ONE (07:25)
[2016-07-16] MEDS ORDERED: HEPARIN SODIUM - IV 10,000 UNITS/10 ML VIAL ONE (07:52)
[2016-07-16] MEDS ORDERED: LEVOFLOXACIN 500 MG PREMIX INJ 100 ML IV ONE (07:52)
[2016-07-16] MEDS: AMOXICILLIN/CLAVULANATE K 875 MG TAB PO SCH ×2 (08:50→21:14)
[2016-07-16] MEDS: APIXABAN 5 MG TABLET PO SCH ×2 (08:51→21:15)
[2016-07-16] MEDS: SACUBITRIL/VALSARTAN 24 MG-26 MG TAB PO SCH ×2 (08:51→21:14)
[2016-07-16] MEDS: CARVEDILOL 6.25 MG TAB PO SCH ×2 (09:00→21:14)
[2016-07-16] MEDS: FUROSEMIDE 40 MG TAB PO SCH (09:00)
[2016-07-16] MEDS ORDERED: FUROSEMIDE 40 MG/4 ML VIAL ONE ×2 (10:13→10:15)
[2016-07-16] MEDS ORDERED: PROTAMINE SULFATE 50 MG/5 ML VIAL ONE (10:13)
[2016-07-16] MEDS ORDERED: LORazepam 2 MG/ML VIAL IV PRN (10:30)
[2016-07-16] MEDS ORDERED: ATROPINE SULFATE 1 MG/ML VIAL IV PRN (10:30)
[2016-07-16] MEDS ORDERED: oxyCODONE/ACETAMINOPHEN 5 MG/325 MG TAB PO PRN ×2 (10:30)
[2016-07-16] MEDS ORDERED: LIDOCAINE HCL 1% 50 ML VIAL INFIL PRN (10:30)
[2016-07-16] MEDS ORDERED: ONDANSETRON HCL 4 MG/2 ML VIAL IV PRN (10:30)
[2016-07-16] MEDS ORDERED: SODIUM CHLOR 0.9% 250 ML INJ 250 ML IV PRN (10:30)
[2016-07-16] MEDS ORDERED: METOCLOPRAMIDE HCL 10 MG/2 ML VIAL IV PRN (10:30)
[2016-07-16] MEDS ORDERED: fentaNYL CITRATE 250 MCG/5 ML AMP ONE (10:41)
[2016-07-16] MEDS ORDERED: DO NOT ADM ANY ANTICOAGULANT DRUGS XX PRN (10:45)
[2016-07-16] MEDS ORDERED: BACITRACIN OINT 0.9 GM PKT TOP ONE (11:00)
[2016-07-16] MEDS: DOCUSATE SODIUM 100 MG CAP PO SCH ×2 (13:15→21:17)
--- NOTE | 2016-07-16 13:29 | HHI.PR ---
Subjective Remarks The patient was seen following the ablation. His was at the bedside. They were happy to finally have the procedure done. The patient did not have any pain at this time. He was hoping to go home tomorrow. Discussed with nursing. Objective Vitals Vital Signs Date Time Temp Pulse Resp B/P Pulse Ox O2 Delivery O2 Flow Rate FiO2 07/16/16 12:10 96 Nasal Cannula 2.00 07/16/16 12:10 71 07/16/16 11:30 66 16 127/78 95 Nasal Cannula 3 07/16/16 11:15 66 16 122/71 95 Nasal Cannula 3 07/16/16 11:00 62 16 121/60 97 Nasal Cannula 3 07/16/16 10:45 62 16 128/64 97 Nasal Cannula 3 07/16/16 10:35 98.2 71 16 149/86 97 Nasal Cannula 3 07/16/16 06:00 85 07/16/16 05:00 85 07/16/16 04:00 86 07/16/16 03:00 72 07/16/16 03:00 98.2 82 18 102/72 96 07/16/16 02:00 75 07/16/16 01:00 62 07/16/16 00:00 77 07/15/16 23:00 97.8 79 19 101/59 97 07/15/16 23:00 81 07/15/16 22:00 76 07/15/16 21:00 78 07/15/16 20:00 86 07/15/16 19:00 94 Room Air 07/15/16 19:00 97.8 84 20 116/66 94 07/15/16 19:00 84 07/15/16 15:51 76 07/15/16 15:00 97.7 80 18 131/60 96 07/15/16 14:00 82 I/O 07/15/16 07/15/16 07/15/16 07/16/16 07/16/16 07/16/16 07:00 15:00 23:00 07:00 15:00 23:00 Intake Total 420 ml 240 ml 460 ml 1850 ml Output Total 225 ml 1200 ml Balance 420 ml 240 ml 235 ml 650 ml Intake Oral 420 ml 240 ml 460 ml 50 ml IV Total 0 ml 200 ml Other 1600 ml Output Urine Total 225 ml 800 ml Estimated Blood Loss 200 ml Other 200 ml # Voids 2 2 # Bowel Movements 1 Result Diagram: 07/13/16 1152 07/13/16 1152 Imaging Last Impressions Chest CT 07/07/16 0000 Signed Impressions: Service Date/Time: Thursday, July 07, 2016 20:20 - CONCLUSION: 1. Tiny left and small right pleural effusions. The right is slightly larger from the prior study. 2. Bullous emphysematous changes. 3. Mild mediastinal adenopathy. 4. Coronary artery atherosclerotic calcifications. Ant Candelario Jr., MD Chest X-Ray [id number]/06/162157 Signed Impressions: Service Date/Time: Wednesday, July 06, 2016 22:13 - CONCLUSION: 1. Minimal basilar atelectasis. Edison Finch MD Aorta CTA [id number] Signed Impressions: Service Date/Time: Wednesday, July 06, 2016 23:19 - CONCLUSION: 1. No evidence of aortic dissection or aneurysmal dilatation. 2. Atherosclerotic changes are seen throughout the aorta. 3. A few nonspecific nodules in the right lobe of the thyroid. 4. Bilateral iliac vein stents. 5. Bullous emphysema with a very small right effusion versus pleural thickening. Dominguez Valenzuela MD Objective Remarks GENERAL: Alert and oriented X3, NAD. SKIN: Warm and dry. HEAD: Normocephalic. EYES: No scleral icterus. No injection or drainage. NECK: Supple, trachea midline. No JVD or lymphadenopathy. CARDIOVASCULAR: Regular rate and rhythm without murmurs, gallops, or rubs. RESPIRATORY: Breath sounds equal bilaterally. No accessory muscle use. GASTROINTESTINAL: Abdomen soft, non-tender, nondistended. MUSCULOSKELETAL: No cyanosis, or edema. BACK: Nontender without obvious deformity. No CVA tenderness. NEURO: No gross deficits. PSYCH: Mood and affect appropriate. Procedures Cardiac catheterization 07/10/2016. CONCLUSIONS 1. Normal coronary arteries. 2. Non-ischemic cardiomyopathy. Ablation 07/16/16. Medications and IVs Current Medications Medications (Trade) Dose Ordered Sig/Donna Route Start Time Stop Time Status Last Admin (NS Flush) 2 ml UNSCH PRN FLUSH 07/07/16 01:15 07/07/16 15:17 (NS Flush) 2 ml BID FLUSH 07/07/16 09:00 07/15/16 20:46 (Tylenol) 650 mg Q4H PRN PO 07/07/16 01:15 07/11/16 12:06 (Colace) 100 mg Q12H PO 07/07/16 01:15 (Tylenol) 650 mg Q6H PRN PO 07/07/16 01:15 07/09/16 23:40 (Narcan Inj) 0.4 mg UNSCH PRN IV 07/07/16 01:15 (Lasix) 40 mg DAILY PO 07/08/16 09:00 07/15/16 09:24 (Augmentin) 875 mg BID PO 07/08/16 13:00 07/15/16 20:45 (Pill Splitter) 1 ea UNSCH PRN OTHER 07/08/16 16:00 (Coreg) 12.5 mg Q12HR PO 07/10/16 09:00 07/15/16 20:45 (Entresto 24-26 Mg) 1 tab BID PO 07/10/16 09:00 07/15/16 20:44 (Flonase Alvarado Spr) 2 spray HS EACH NARE 07/12/16 21:00 07/15/16 20:48 (Pravachol) 40 mg HS PO 07/12/16 21:00 07/15/16 20:45 (Cordarone) 400 mg Q12HR PO 07/13/16 09:15 Hold (Restoril) 15 mg HS PRN PO 07/13/16 11:30 (Percocet 5-325 Mg) 1 tab Q4H PRN PO 07/16/16 10:30 (Percocet 5-325 Mg) 2 tab Q4H PRN PO 07/16/16 10:30 (Ativan Inj) 0.5 mg UNSCH PRN IV 07/16/16 10:30 07/17/16 10:29 Atropine Sulfate 0.5 mg 0.5 mg UNSCH PRN IV 07/16/16 10:30 (NS 250 ml Inj) 250 ml @ 500 mls/hr ONCE PRN IV 07/16/16 10:30 07/17/16 10:29 (Reglan Inj) 10 mg Q4H PRN IV 07/16/16 10:30 (Zofran Inj) 4 mg Q4H PRN IV 07/16/16 10:30 (Xylocaine 1% Inj (50 ml)) 10 ml UNSCH PRN INFIL 07/16/16 10:30 07/17/16 10:29 (Eliquis) 5 mg BID PO 07/16/16 21:00 Miscellaneous Information ALL NURSING DEPARTME... UNSCH PRN XX 07/16/16 10:45 07/17/16 10:44 A/P Problem List: (1) Atrial fibrillation with rapid ventricular response ICD Code: I48.91 Status: Acute (2) Bullous emphysema ICD Code: J43.9 Status: Acute (3) Cardiomyopathy ICD Code: I42.9 Status: Acute Assessment and Plan This is a 70-year-old male with past medical history of paroxysmal atrial fibrillation, peripheral vascular disease who presented to the ER complaining of shortness of breath ongoing for 1 month prior to this admission on 07/07/2016. Outside nuclear stress test showed moderate-sized mid anteroseptal infarction with ischemia and inferior moderate infarction mixed with ischemia. An echocardiogram showed ejection fraction 35% with moderate LV and LA dilation. Cardiology evaluated the patient and recommended ischemic workup with cardiac catheterization which was done on 07/10/2016 and showed normal coronary arteries. Nonischemic cardiomyopathy EF 35%. Likely due to Atrial fibrillation. Cardiac catheterization shows normal coronary arteries. - Continue carvedilol, isosorbide mononitrate, Lasix, Sacubitril-Valsartan, Imdur and pravastatin 40 mg daily. - monitor fluid status. Atrial fibrillation S/p Cardizem gtt. Ablation performed 07/16/16. - Continue carvedilol and Cardizem for now. Cardiology to adjust medications following ablation. - Discussed with patient and his regarding anticoagulation. Patient would prefer to be on apixaban. Continue apixaban 5 mg twice a day. Sinusitis Chronic problem. The patient endorses significant congestion and postnasal drip. - Continue Augmentin to complete a 10 day course. PPx: Apixaban 5mg BID. Discharge Planning Anticipate discharge in the morning. Problem Qualifiers (1) Cardiomyopathy: Qualified Code: I42.0 - Dilated cardiomyopathy Austen Nelson DO Jul 16, 2016 13:29
--- NOTE | 2016-07-16 19:07 | MA ---
cc: MARCY NUNEZ M.D. DATE: 07/16/2016 PROCEDURE Electrophysiology study, CS cannulation, 3D mapping, transeptal approach, right and left heart catheterization, radiofrequency ablation of atrial fibrillation, pulmonary vein isolation, posterior ablation, floor line creation with line creation, mitral line isolation, left atrial tachycardia ablation and cardioversion, intracardiac echo. IDENTIFICATION Mr. Watkins is a 71-year-old gentleman with a history of atrial fibrillation, heart rate very difficult to control on medication, left atrial enlargement, decreased ejection fraction, referred for electrophysiology study and ablation. The risks, the nature and the benefit of the procedure are clearly stated to him. The risks include pneumothorax, cardiac perforation, stroke, need for open heart surgery and even . The patient understood and agreed to proceed. PROCEDURE After written informed consent was obtained prior to esophageal echo, the patient was kept on the table where he was prepped and draped in the usual sterile fashion. Conscious sedation was initiated and maintained throughout the procedure by anesthesiologist. Once sedation verified, the right and left inguinal area was anesthetized with 2% Xylocaine. Using modified Seldinger technique, the left femoral vein was cannulated on three occasions and three guidewires were advanced. It was very difficult to advance the sheath over the wires. Over the wires one 6, one 7 and one 10 [place] Hemaquet were advanced. I could not cannulate properly the left femoral artery. Then the right femoral vein was cannulated on one occasion and one guidewire was advanced; over the wire an 8-Mexican Hemaquet was advanced. Then the right femoral artery was cannulated on one occasion and one guidewire was advanced; over the wire a 4-Mexican Hemaquet was advanced. Then under fluoroscopic guidance, through the 6 and 7 Mexican Hemaquet, two 5-Mexican Rosanna curved quadripolar electrophysiology catheters were advanced and positioned along the His as well as the coronary sinus. The patient was in atrial fibrillation. Through the 10 Mexican Hemaquet, a [employer] intracardiac echo catheter was advanced and positioned at the right atrium. Multiple views were obtained. There was no pericardial effusion, the pulmonary vein was seen, atrial septal was visualized. Then the 8 Mexican Hemaquet in the right femoral vein was exchanged for an Agilis transseptal sheath that was placed all the way to the superior vena cava. Through the sheath a [place] needle was advanced. Then the sheath, the dilator and the needle were pulled back progressively until foci engaged. Once engaged needle was advanced, RF was delivered for 2 seconds. I was able to cross into the left atrium. Once the needle crossed the dilator was advanced; once the dilator crossed the sheath was advanced; once the sheath crossed the dilator and the needle were removed. I did flush the system, fluid movement seen in left atrium, that indicates sheath in good position. The patient already received 10,000 units of heparin. The goal is to keep an ACT around 350 during the ablation. Then through the sheath, a [facility]. Anirudh 24 circumferential catheter was advanced. Using [employer] Endocardial Solution Mapping System, a two-dimensional configuration of the left atrium was obtained. Points were taken at the left superior and inferior vein, right superior and inferior vein, mitral valve and appendage. Esophageal probe was placed for temperature monitoring during ablation. At that point, the circumferential catheter was replaced by a St. Anirudh TactiCath 3-1/2 mm 65-cm irrigated tip mapping radiofrequency ablation catheter. First I did isolate the left superior and inferior vein. Then posterior was ablated. The mitral line was created, mitral valve was isolated. Then the floor line was created. Then the roof line was created. At that point, the patient was in left atrial tachycardia. An anterior roof line was created and the right superior and inferior vein was isolated. At this point, I re-mapped the atrium, there was no significant signal into the atrium. I did ablate even around the left atrial appendage. At that point, I proceeded with cardioversion. A 200 sync biphasic joule was delivered that converted the patient into sinus rhythm. Isuprel was infused, no tachyarrhythmia was induced. Post Isuprel no tachyarrhythmia was induced. Pacing from the vein showed no conduction to the atrium; pacing from the atrium showed no conduction to the vein. At that point, procedure was complete. Intracardiac echo showed no pericardial effusion. All catheters were removed. Transeptal sheath was exchanged for a 9-Mexican Hemaquet. The patient going to be transferred to a telemetry unit. Will be observed when stable. Can be discharged home by the managing team. No incident to report. The patient tolerated the procedure. Blood loss minimal. 1. Electrocardiogram: At baseline the patient was in atrial fibrillation. Postprocedure the patient in sinus rhythm. 2. Basic interval: Base cycle length was around 480, post ablation it was around 820-830 milliseconds. 3. Tachyarrhythmia: Atrial fibrillation was mapped and ablated. Atrial tachycardia was ablated. Ablation was successful. CONCLUSION Successful electrophysiology study, mapping, radiofrequency ablation of atrial fibrillation, left atrial tachyarrhythmia. COMMENT AND RECOMMENDATION The patient going to be transferred to telemetry unit. Will be observed. Further decision by the managing team. MD GAURAV Shelton/RADHA /5:34 PM /5:54 PM
[2016-07-16] MEDS: FLUTICASONE PROPIONATE 50 MCG/ACT 16 GM NASAL SPRAY EACH NARE SCH (21:00)
[2016-07-16] MEDS: PRAVASTATIN SOD 40 MG TAB PO SCH (21:14)
[2016-07-16] MEDS: SODIUM CHLORIDE 0.9% FLUSH 5 ML FLUSH FLUSH SCH (21:15)
[2016-07-17] VITALS (16 sets, daily range): BP systolic 95–121; BP diastolic 57–71; PULSE 57–94; RESP 16–20; TEMP 97.5–98.9; O2SAT 92–96
[2016-07-17] MEDS: ACETAMINOPHEN 325 MG TAB PO PRN (02:10)
[2016-07-17 04:58] LABS: HEMATOCRIT 41.1 % (39.0-51.0); MEAN CELL VOLUME 95.5 FL (80.0-100.0); MEAN CORPUSCULAR HEMOGLOBIN 31.7 PG (27.0-34.0); MEAN CORPUSCULAR HGB CONC 33.2 % (32.0-36.0); PLATELET COUNT 260 TH/MM3 (150-450); RED CELL DISTRIBUTION WIDTH 13.7 % (11.6-17.2); REVIEW FLAG FINAL; WHITE BLOOD COUNT 20.9 TH/MM3 (4.0-11.0)
[2016-07-17 05:10] LABS: APTT (PATIENT) 27.5 SEC (24.3-30.1); PROTHROMBIN TIME - PATIENT 11.4 SEC (9.8-11.6)
--- NOTE | 2016-07-17 06:45 | EKG ---
Date Performed: 07/16/2016 Time Performed: 11:05:10 PTAGE: 71 years EKG: Sinus rhythm LEFT BUNDLE BRANCH BLOCK ABNORMAL ECG Compared to prior tracing no significant change PREVIOUS TRACING : 07/07/2016 05.52 DOCTOR: Jeffrey Sullivan Interpretating Date/Time 07/17/2016 06:42:40
[2016-07-17] MEDS: AMOXICILLIN/CLAVULANATE K 875 MG TAB PO SCH (09:06)
[2016-07-17] MEDS: APIXABAN 5 MG TABLET PO SCH (09:07)
[2016-07-17] MEDS: CARVEDILOL 6.25 MG TAB PO SCH (09:07)
[2016-07-17] MEDS: SODIUM CHLORIDE 0.9% FLUSH 5 ML FLUSH FLUSH SCH (09:07)
[2016-07-17] MEDS: SACUBITRIL/VALSARTAN 24 MG-26 MG TAB PO SCH (09:07)
[2016-07-17] MEDS: FUROSEMIDE 40 MG TAB PO SCH (09:07)
--- NOTE | 2016-07-17 09:38 | HHI.PR ---
Subjective Remarks Stale, no complaints Objective Vital Signs Date Time Temp Pulse Resp B/P Pulse Ox O2 Delivery O2 Flow Rate FiO2 07/17/16 06:00 80 07/17/16 05:00 83 07/17/16 04:00 85 07/17/16 03:00 98.3 94 16 121/71 94 07/17/16 03:00 74 07/17/16 02:00 88 07/17/16 01:00 74 07/17/16 00:00 76 07/16/16 23:00 98.3 92 17 124/63 97 07/16/16 23:00 81 07/16/16 22:00 82 07/16/16 21:00 77 07/16/16 20:00 77 07/16/16 19:00 98.2 76 20 137/70 96 07/16/16 19:00 76 07/16/16 17:00 73 07/16/16 16:00 97.8 75 18 114/70 97 07/16/16 15:00 73 07/16/16 12:10 96 Nasal Cannula 2.00 07/16/16 12:10 71 07/16/16 12:00 98.6 69 18 110/68 97 07/16/16 11:30 66 16 127/78 95 Nasal Cannula 3 07/16/16 11:15 66 16 122/71 95 Nasal Cannula 3 07/16/16 11:00 62 16 121/60 97 Nasal Cannula 3 07/16/16 10:45 62 16 128/64 97 Nasal Cannula 3 07/16/16 10:35 98.2 71 16 149/86 97 Nasal Cannula 3 I/O 07/16/16 07/16/16 07/16/16 07/17/16 07/17/16 07/17/16 07:00 15:00 23:00 07:00 15:00 23:00 Intake Total 460 ml 1850 ml 620 ml Output Total 225 ml 1200 ml 180 ml Balance 235 ml 650 ml 440 ml Intake Oral 460 ml 50 ml 620 ml IV Total 0 ml 200 ml 0 ml Other 1600 ml Output Urine Total 225 ml 800 ml 180 ml Estimated Blood Loss 200 ml Other 200 ml Result Diagram: 07/17/16 0421 07/13/16 1152 Objective Remarks GENERAL: Well-nourished, well-developed patient. SKIN: Warm and dry. Groin sites soft, benign. HEAD: Normocephalic. EYES: No scleral icterus. No injection or drainage. NECK: Supple, trachea midline. No JVD or lymphadenopathy. CARDIOVASCULAR: Regular rate and rhythm without murmurs, gallops, or rubs. RESPIRATORY: Breath sounds equal bilaterally. No accessory muscle use. GASTROINTESTINAL: Abdomen soft, non-tender, nondistended. EXTREMITIES: No cyanosis, or edema. NEUROLOGICAL: Awake, alert, and oriented x 3. Non-focal. Medications and IVs Current Medications Medications (Trade) Dose Ordered Sig/Donna Route Start Time Stop Time Status Last Admin (NS Flush) 2 ml UNSCH PRN FLUSH 07/07/16 01:15 07/07/16 15:17 (NS Flush) 2 ml BID FLUSH 07/07/16 09:00 07/17/16 09:07 (Tylenol) 650 mg Q4H PRN PO 07/07/16 01:15 07/11/16 12:06 (Colace) 100 mg Q12H PO 07/07/16 01:15 07/16/16 13:15 (Tylenol) 650 mg Q6H PRN PO 07/07/16 01:15 07/17/16 02:10 (Narcan Inj) 0.4 mg UNSCH PRN IV 07/07/16 01:15 (Lasix) 40 mg DAILY PO 07/08/16 09:00 07/17/16 09:07 (Augmentin) 875 mg BID PO 07/08/16 13:00 07/17/16 09:06 (Pill Splitter) 1 ea UNSCH PRN OTHER 07/08/16 16:00 (Coreg) 12.5 mg Q12HR PO 07/10/16 09:00 07/17/16 09:07 (Entresto 24-26 Mg) 1 tab BID PO 07/10/16 09:00 07/17/16 09:07 (Flonase Alvarado Spr) 2 spray HS EACH NARE 07/12/16 21:00 07/15/16 20:48 (Pravachol) 40 mg HS PO 07/12/16 21:00 07/16/16 21:14 (Cordarone) 400 mg Q12HR PO 07/13/16 09:15 Hold (Restoril) 15 mg HS PRN PO 07/13/16 11:30 (Percocet 5-325 Mg) 1 tab Q4H PRN PO 07/16/16 10:30 (Percocet 5-325 Mg) 2 tab Q4H PRN PO 07/16/16 10:30 (Ativan Inj) 0.5 mg UNSCH PRN IV 07/16/16 10:30 07/17/16 10:29 Atropine Sulfate 0.5 mg 0.5 mg UNSCH PRN IV 07/16/16 10:30 (NS 250 ml Inj) 250 ml @ 500 mls/hr ONCE PRN IV 07/16/16 10:30 07/17/16 10:29 (Reglan Inj) 10 mg Q4H PRN IV 07/16/16 10:30 (Zofran Inj) 4 mg Q4H PRN IV 07/16/16 10:30 (Xylocaine 1% Inj (50 ml)) 10 ml UNSCH PRN INFIL 07/16/16 10:30 07/17/16 10:29 (Eliquis) 5 mg BID PO 07/16/16 21:00 07/17/16 09:07 Miscellaneous Information ALL NURSING DEPARTME... UNSCH PRN XX 07/16/16 10:45 07/17/16 10:44 Assessment and Plan Problem List: (1) Atrial fibrillation with rapid ventricular response Status: Resolved Plan: Stable s/p afib ablation. Can be d/c'd from EP standpoint when cleared by managing team. F/U with Dr. Crain in 3 weeks Assessment and Plan D/W Dr. Crain, pt., and RN. Nilda Valdez Jul 17, 2016 09:38
[2016-07-17] MEDS: DOCUSATE SODIUM 100 MG CAP PO SCH (13:15)
--- NOTE | 2016-07-17 13:31 | EKG ---
Date Performed: 07/17/2016 Time Performed: 06:14:40 PTAGE: 71 years EKG: Sinus rhythm with 1st degree A-V block Consider left atrial abnormality Left bundle branch block Lateral infarct - age undetermined Abnormal ECG PREVIOUS TRACING : 07/16/2016 11.05.10 Since previous tracing, no significant change noted DOCTOR: Bibiana Aragon Interpretating Date/Time 07/17/2016 13:30:10
--- NOTE | 2016-07-17 13:53 | RADRPT ---
EXAM DATE/TIME: 07/17/2016 12:54 [facility] COMPARISON: CHEST SINGLE AP, July 06, 2016, 22:13. INDICATIONS : Cough, congestion, chest pain. MEDICAL HISTORY : Atrial fibrillation. SURGICAL HISTORY : None. ENCOUNTER: Subsequent ACUITY: 1 week PAIN SCORE: 2/10 LOCATION: Bilateral upper chest FINDINGS: A single view of the chest demonstrates the lungs to be symmetrically aerated without evidence of mas s, infiltrate or effusion. The cardiomediastinal contours are unremarkable. Osseous structures are intact. CONCLUSION: No acute disease. No significant change has occurred. John Perdomo MD on July 17, 2016 at 13:52 Board Certified Radiologist. This report was verified electronically.
[2016-07-17] MEDS ORDERED: APIX5TAB PO (14:30)
[2016-07-17] MEDS ORDERED: SACU1TAB PO (14:30)
[2016-07-17] MEDS ORDERED: CARV6.25 PO (14:30)
--- NOTE | 2016-07-17 14:35 | HHI.DS ---
Discharge Summary Admission Date Jul 08, 2016 at 15:52 Discharge Date: Jul 17, 2016 Admitting Diagnosis afib w/rvr; h/o cad (1) Atrial fibrillation with rapid ventricular response ICD Code: I48.91 Diagnosis: Principal (2) Bullous emphysema ICD Code: J43.9 (3) Cardiomyopathy ICD Code: I42.9 Procedures Cardiac catheterization 07/10/2016. CONCLUSIONS 1. Normal coronary arteries. 2. Non-ischemic cardiomyopathy. Ablation 07/16/16. Brief History - From Admission This is a 70-year-old male with past medical history of paroxysmal atrial fibrillation, peripheral vascular disease who presented to the ER last night complaining of shortness of breath ongoing for 1 month. History is obtained from the patient and his . The patient states he injured his back one month ago where he works at [employer] and has been seeing a workman's comp physician who ordered an MRI which showed he had bulging disks and L2 to L3. It was the physician who stated that he seemed like he was in A. fib, the patient then went to go see an laborer pipeline Dr. Garcia in [place] for the afib. The patient states his Sotalol was increased by Dr. Garcia around the beginning of the month. This did not help his symptoms and he has still continued to be short of breath, tired and occasionally gets palpitations. Dr. Garcia then ordered echocardiogram stress test and cardiac PET scan which the patient states that he got done yesterday, but did not see his nightman during that visit. The patient also complained of some abdominal pressure yesterday. However he has denied any chest pain or chest pressure. He just gets dyspneic with exertion. Denies any cough or fever. Laying flat makes his shortness of breath worse and resting makes it better. He has chronic pedal edema but denies any increased edema. He came to the ER because he states driving home from [place] he started to feel worse and worse more short of breath and was dissatisfied with the workup and so he presented to the ER. He did smoke for about 10 years and his first was a heavy smoker and from lung cancer. His brother also from lung cancer several years ago and so he has been worried about that. In the emergency department he had unequal blood pressure and so a CTA the aorta was obtained which was negative for aortic dissection but did show bullous emphysema. The patient denies history of any stents or coronary artery disease. The patient and his are convinced since that he is short of breath from the A. fib. He did have a cardioversion performed about 10 years ago but has never had an ablation. He has not established with a primary care physician. He also states that he lives in [place] and is tired of going over to [place] where his nightman is. The patient has chronic pedal edema in the lower extremities and has had endovascular procedures for circulation in his lower extremities as well as bilateral iliac vein stents for the pedal edema. CBC/BMP: 07/17/16 0421 07/13/16 1152 Significant Findings Laboratory Tests Test 07/17/16 04:21 White Blood Count 20.9 TH/MM3 (4.0-11.0) Red Blood Count 4.30 MIL/MM3 (4.50-5.90) Imaging Last Impressions Chest X-Ray 07/17/16 0000 Signed Impressions: Service Date/Time: Sunday, July 17, 2016 12:54 - CONCLUSION: No acute disease. No significant change has occurred. John Perdomo MD Chest CT 07/07/16 0000 Signed Impressions: Service Date/Time: Thursday, July 07, 2016 20:20 - CONCLUSION: 1. Tiny left and small right pleural effusions. The right is slightly larger from the prior study. 2. Bullous emphysematous changes. 3. Mild mediastinal adenopathy. 4. Coronary artery atherosclerotic calcifications. Ant Candelario Jr., MD Aorta CTA 07/06/168 Signed Impressions: Service Date/Time: Wednesday, July 06, 2016 23:19 - CONCLUSION: 1. No evidence of aortic dissection or aneurysmal dilatation. 2. Atherosclerotic changes are seen throughout the aorta. 3. A few nonspecific nodules in the right lobe of the thyroid. 4. Bilateral iliac vein stents. 5. Bullous emphysema with a very small right effusion versus pleural thickening. Dominguez Valenzuela MD PE at Discharge GENERAL: Alert and oriented X3, NAD. SKIN: Warm and dry. HEAD: Normocephalic. EYES: No scleral icterus. No injection or drainage. NECK: Supple, trachea midline. No JVD or lymphadenopathy. CARDIOVASCULAR: Regular rate and rhythm without murmurs, gallops, or rubs. RESPIRATORY: Breath sounds equal bilaterally. No accessory muscle use. GASTROINTESTINAL: Abdomen soft, non-tender, nondistended. MUSCULOSKELETAL: No cyanosis, or edema. BACK: Nontender without obvious deformity. No CVA tenderness. NEURO: No gross deficits. PSYCH: Mood and affect appropriate. Pt update on day of discharge The pt wanted to go home. He had no acute complaints. He said urinating was at first difficult after Vu removal but it has been improving. No acute concerns. Discussed with family. Hospital Course This is a 70-year-old male with past medical history of paroxysmal atrial fibrillation, peripheral vascular disease who presented to the ER complaining of shortness of breath ongoing for 1 month prior to this admission on 07/07/2016. Outside nuclear stress test showed moderate-sized mid anteroseptal infarction with ischemia and inferior moderate infarction mixed with ischemia. An echocardiogram showed ejection fraction 35% with moderate LV and LA dilation. Cardiology evaluated the patient and recommended ischemic workup with cardiac catheterization which was done on 07/10/2016 and showed normal coronary arteries. Nonischemic cardiomyopathy EF 35%. Likely due to Atrial fibrillation. Cardiac catheterization shows normal coronary arteries. - Continue carvedilol, isosorbide mononitrate, Lasix, Sacubitril-Valsartan, Imdur and pravastatin 40 mg daily. - monitor fluid status. Atrial fibrillation S/p Cardizem gtt. Ablation performed 07/16/16. - Continue carvedilol and Cardizem for now. Cardiology to adjust medications following ablation. - Discussed with patient and his regarding anticoagulation. Patient would prefer to be on apixaban. Continue apixaban 5 mg twice a day. Sinusitis Chronic problem. The patient endorses significant congestion and postnasal drip. - Continue Augmentin to complete a 10 day course. PPx: Apixaban 5mg BID. Pt Condition on Discharge: Stable Discharge Disposition: Discharge Home Discharge Time: > 30 minutes Discharge Instructions Follow up Referrals: Cardiology - 2 Weeks with Piter Crain MD PCP Follow-up - 1 Week New Medications: Albuterol 18 GM Inh (Ventolin Hfa 18 GM Inh) 90 Mcg/Act Aer 2 PUFF INH Q4H PRN SHORTNESS OF BREATH #1 Ref 0 INHALER Ipratropium-Albuterol Neb (Duoneb) 0.5-2.5 Mg/3 Ml Neb 1 NEBULE INH Q4HR NEB Breathing Treatment #180 Ref 0 NEBULE Nebulizer (Nebulizer) 1 Mis Mis 1 EA .ROUTE DIRECTED Breathing Treatment #1 Ref 0 EA Oxygen tank (Oxygen tank) 1 Ea Tank 2 LITER SUNIL.CANULA CONTINUOUS Oxygen Concentrator Portable Gaseous 2 L/min via Nasal Cannula Continuous For 99 months HYPOXEMIA PREVENTION #2 CYLINDER Potassium Chloride ER (Potassium Chloride ER) 20 Meq Tab 20 MEQ PO DAILY Electrolyte Replacement #30 Ref 0 TAB Tiotropium Inh (Spiriva Respimat Inh) 1.25 Mcg/Act Aero 2 PUFF INH DAILY 1.25 mcg = 1 inhalation Asthma Management #1 Ref 0 INHALER Apixaban (Eliquis) 5 Mg Tab 5 MG PO BID A fib #60 TAB Carvedilol (Coreg) 6.25 Mg Tab 12.5 MG PO Q12HR Heart rate #60 TAB Furosemide (Lasix) 40 Mg Tab 40 MG PO DAILY edema #30 TAB Sacubitril-Valsartan (Entresto) 24-26 Mg Tab 1 TAB PO BID Blood Pressure Management #60 TAB Continued Medications: Pravastatin (Pravastatin) 40 Mg Tab 40 MG PO DAILY Cholesterol Management #30 Ref 0 TAB Warfarin (Coumadin) 6 Mg Tab 6 MG PO DAILY Prevent Blood Clot #30 Ref 0 TAB Discontinued Medications: Amlodipine (Amlodipine) 10 Mg Tab 10 MG PO DAILY Blood Pressure Management #30 Ref 0 TAB Amoxicillin-Clavulanate (Amoxicillin-Clavulanate) 875-125 mg Tab 875 MG PO BID not for use in CrCl <30 mL/minute Infection Ref 0 TAB Losartan (Losartan) 50 Mg Tab 50 MG PO DAILY Blood Pressure Management #30 Ref 0 TAB Sotalol (Afib/Afl) (Sotalol (AF)) 80 Mg Tab 80 MG PO BID Regulate Heart Beat #60 Ref 0 TAB Austen Nelson DO Jul 17, 2016 14:35
[2016-07-17 15:27] LABS: BLOOD, URINE SMALL (NEG); GLUCOSE,URINE NEG (NEG); HYALINE CAST, URINE 19 /lpf (RARE); KETONE, URINE NEG (NEG); NITRITE,URINE NEG (NEG); PH, URINE 5.5 (5.0-8.5); URINE COLOR YELLOW (YELLW/STRAW)
[2016-07-17 15:28] LABS: COMMENT (UR) CULT NOT INDICATED; CULTURE IF INDICATED CULT NOT INDICATED
--- NOTE | 2016-08-02 13:18 | ETE ---
Study Study Date:07/16/2016 STUDY CONCLUSIONS SUMMARY - Left ventricle: The cavity size was normal. Wall thickness was normal. Systolic function was mildly reduced. The estimated ejection fraction was in the range of 45% to 50%. Wall motion was normal; there were no regional wall motion abnormalities. - Aortic valve: No evidence of vegetation. - Mitral valve: No evidence of vegetation. - Left atrium: The atrium was dilated. No evidence of thrombus in the atrial cavity or appendage. No evidence of thrombus in the atrial cavity or appendage. - Right atrium: No evidence of thrombus in the atrial cavity or appendage. - Atrial septum: No defect or patent foramen ovale was identified. Echo contrast study showed no [id number] atrial level shunt, at baseline or with provocation. - Tricuspid valve: No evidence of vegetation. - Pulmonic valve: No evidence of vegetation. If LV function is below 40, please consider prescribing an ACEI or ARB or document rationale for non-use. PROCEDURE DATA Consent: The risks, benefits, and alternatives to the procedure were explained to the patient and informed consent was obtained. Procedure: Initial setup. The patient was brought to the laboratory in the fasting state. Intravenous access was obtained. Surface ECG leads and pulse oximetric signals were monitored. Sedation. Conscious sedation was administered by anesthesiology. Transesophageal echocardiography. Topical anesthesia was obtained using viscous lidocaine. A transesophageal probe was inserted by the attending special services coordinator. Image quality was good. Study completion: All IVs inserted during the procedure were removed. The patient tolerated the procedure well. There were no complications. Transesophageal echocardiography. 2D, complete spectral Doppler, and color Doppler. CARDIAC ANATOMY LEFT VENTRICLE: The cavity size was normal. Wall thickness was normal. Systolic function was mildly reduced. The estimated ejection fraction was in the range of 45% to 50%. Wall motion was normal; there were no regional wall motion abnormalities. AORTIC VALVE: Structurally normal valve. Trileaflet; normal thickness leaflets. Cusp separation was normal. No evidence of vegetation. Doppler: No significant regurgitation. Aorta: - There was no atheroma. There was no evidence for dissection. Aortic root: The aortic root was not dilated. Ascending aorta: The ascending aorta was normal in size. Aortic arch: The aortic arch was normal in size. Descending aorta: The descending aorta was normal in size. MITRAL VALVE: Structurally normal valve. Leaflet separation was normal. No evidence of vegetation. Doppler: Trace regurgitation. LEFT ATRIUM: The atrium was dilated. No evidence of thrombus in the atrial cavity or appendage. No evidence of thrombus in the atrial cavity or appendage. The appendage was morphologically a left appendage, multilobulated, and of normal size. Emptying velocity was normal. ATRIAL SEPTUM: No defect or patent foramen ovale was identified. Echo contrast study showed no [id number] atrial level shunt, at baseline or with provocation. RIGHT VENTRICLE: The cavity size was normal. Wall thickness was normal. Systolic function was normal. PULMONIC VALVE: Structurally normal valve. No evidence of vegetation. TRICUSPID VALVE: Structurally normal valve. Leaflet separation was normal. No evidence of vegetation. Doppler: No significant regurgitation. PULMONARY ARTERY: The main pulmonary artery was normal-sized. RIGHT ATRIUM: The atrium was normal in size. No evidence of thrombus in the atrial cavity or appendage. The appendage was morphologically a right appendage. PERICARDIUM: There was no pericardial effusion. Prepared and signed by Piter Crain [id number]
== END 2016-07-17 21:07 | disposition home health service (06) | DRG 273 ==
LOC: PHED 21:28 → PHEDA 07-07 00:42 → PHEDH 07-07 05:25 → PH3A 07-07 09:02 → OBSVTOIN 07-08 15:52 → HCPC 07-09 23:20
PROVIDERS: ADMIT Hospitalist; ATTEND Hospitalist
PROC: 4A023N7 Measurement of Cardiac Sampling and Pressure, Left Heart, Percutaneous Approach (ICD-10-PCS; 2016-07-10)
PROC: B2111ZZ Fluoroscopy of Multiple Coronary Arteries using Low Osmolar Contrast (ICD-10-PCS; 2016-07-10)
PROC: B2151ZZ Fluoroscopy of Left Heart using Low Osmolar Contrast (ICD-10-PCS; 2016-07-10)
PROC: 02573ZK Destruction of Left Atrial Appendage, Percutaneous Approach (ICD-10-PCS; 2016-07-16)
PROC: 4A0234Z Measurement of Cardiac Electrical Activity, Percutaneous Approach (ICD-10-PCS; 2016-07-16)
PROC: 02K83ZZ Map Conduction Mechanism, Percutaneous Approach (ICD-10-PCS; 2016-07-16)
PROC: 4A023N8 Measurement of Cardiac Sampling and Pressure, Bilateral, Percutaneous Approach (ICD-10-PCS; 2016-07-16)
PROC: 5A2204Z Restoration of Cardiac Rhythm, Single (ICD-10-PCS; 2016-07-16)
PROC: B244ZZ3 Ultrasonography of Right Heart, Intravascular (ICD-10-PCS; 2016-07-16)
PROC: 02583ZZ Destruction of Conduction Mechanism, Percutaneous Approach (ICD-10-PCS; principal; 2016-07-16 09:45)
DX: I48.0 Paroxysmal atrial fibrillation (principal); I50.23 Acute on chronic systolic (congestive) heart failure; I42.0 Dilated cardiomyopathy; J43.9 Emphysema, unspecified; I10 Essential (primary) hypertension; I73.9 Peripheral vascular disease, unspecified; E78.5 Hyperlipidemia, unspecified; R09.02 Hypoxemia; J32.9 Chronic sinusitis, unspecified; I47.1 Supraventricular tachycardia; Z23 Encounter for immunization; Z79.01 Long term (current) use of anticoagulants; Z87.891 Personal history of nicotine dependence
CPT/HCPCS: 71010; 71250; 71275; 74174; 80048; 80053; 80162; 81001; 82550; 83690; 83735; 83880; 84484; 85002; 85025; 85027; 85610; 85730; 86850; 86900; 86901; 90471; 90686; 92960; 93005; 93312; 93320; 93325; 93458; 93613; 93623; 93656; 93662; 94620; 94640; 94664; C1730; C1731; C1732; C1759; C1766; C1769; C1893; C2630; G0008; G0378; G8987-GP; G8988-GP; J1160; J1644; J1940; J1956; J2250; J2370; J2405; J2720; J2930; J3010; J7040; Q2038; Q9967

== ENCOUNTER 2017-02-27 12:26 | Emergency (ER) | payer BC, MEDICARE ==
[~2017-02-27] VITALS: Ht 182.9 cm; Wt 115.0 kg
[~2017-02-27 12:26] MED LIST: APIX5TAB PO; CARV6.25 PO; COUM6TAB PO; FURO1TAB60 PO; IPRASOL INH; NEBULIZER1 MI1; OXYGENTANK NAS.CANULA; POTA-163 PO; PRAV40TA2 PO; SACU1TAB PO; TIOT1AER2 INH; VENTAER INH
[2017-02-27 12:28] VITALS: BP 162/72; PULSE 59; RESP 14; TEMP 98.4; O2SAT 96
[2017-02-27] MEDS ORDERED: SACU1TAB7 PO (12:59)
[2017-02-27] MEDS ORDERED: CARV6.25 PO (12:59)
[2017-02-27] MEDS ORDERED: MORPHINE SULFATE 4 MG/ML INJ IV PUSH ONE (13:00)
[2017-02-27] MEDS ORDERED: ONDANSETRON HCL 4 MG/2 ML VIAL IVP ONE (13:00)
[2017-02-27] MEDS ORDERED: SODIUM CHLORIDE 0.9% FLUSH 10 ML FLUSH IV FLUSH PRN (13:00)
--- NOTE | 2017-02-27 13:11 | PD ---
HPI Chief Complaint: GI Complaint Time Seen by Provider: 12:46 Travel History International Travel<30 days: No Contact w/Intl Traveler<30days: No Traveled to known affect area: No History of Present Illness HPI 71-year-old male presents to the emergency department for evaluation of abdominal pain that started on Wednesday, proximal leg 4 days ago. The patient states that he was sitting in a chair bending down to cut a root. When he sat back up he noticed pain in the epigastric area. He states that since then the pain has now went down to the lower abdomen. Reports nausea, but no vomiting. He reports constipation. No blood in the stool. Patient denies any chest pain or shortness of breath. He is recently diagnosed with prostate cancer and is to begin radiation soon. He states that he has been getting hormone injections in the abdomen and has had hot flashes since starting these. No fevers. Patient reports history of PVD, atrial fibrillation. He does report history of appendicitis with appendectomy. No other abdominal surgeries. He denies pain like this in the past. PFSH Past Medical History Hx Anticoagulant Therapy: Yes Arthritis: No Asthma: No Atrial Fibrillation: Yes Anxiety: No Depression: No Heart Rhythm Problems: Yes Cancer: No Cardiac Catheterization: Yes Cardiovascular Problems: Yes (STENTS IN LEGS) High Cholesterol: Yes Chemotherapy: No Congestive Heart Failure: Yes COPD: No Cerebrovascular Accident: No Coronary Artery Disease: Yes Diabetes: Yes Endocrine: No GERD: No Genitourinary: No Hiatal Hernia: No Hypertension: Yes Immune Disorder: No Kidney Stones: No Musculoskeletal: No Neurologic: No (numbness left leg) Psychiatric: No Respiratory: Yes (few weeks ago) Migraines: No Radiation Therapy: No Renal Failure: No Seizures: No Sickle Cell Disease: No Sleep Apnea: Yes Thyroid Disease: No Ulcer: No Past Surgical History Abdominal Surgery: No AICD: No Cardiac Surgery: No Ear Surgery: No Endocrine Surgery: No Eye Surgery: No Genitourinary Surgery: No Insulin Pump: No Joint Replacement: No Oral Surgery: No Pacemaker: Yes Thoracic Surgery: No Other Surgery: Yes (LE angio with stents) Social History Alcohol Use: No Tobacco Use: No Substance Use: No Allergies-Medications (Allergen,Severity, Reaction): Coded Allergies: No Known Allergies (Unverified , 07/06/16) Reported Meds & Prescriptions Reported Meds & Active Scripts Active Eliquis (Apixaban) 5 Mg Tab 5 Mg PO BID Lasix (Furosemide) 40 Mg Tab 40 Mg PO DAILY Oxygen tank (Oxygen) 1 Ea Tank 2 Liter SUNIL.CANULA CONTINUOUS Oxygen Concentrator Portable Gaseous 2 L/min via Nasal Cannula Continuous For 99 months Reported Coreg (Carvedilol) 6.25 Mg Tab 6.25 Mg PO BID Entresto (Sacubitril-Valsartan) 49-51 Mg Tab 1 Tab PO DAILY Pravastatin 40 Mg Tab 40 Mg PO DAILY Review of Systems Except as stated in HPI: all other systems reviewed are Neg Physical Exam Narrative GENERAL: Well-nourished, well-developed male patient, afebrile. SKIN: Focused skin assessment warm/dry. HEAD: Normocephalic. Atraumatic. EYES: No scleral icterus. No injection or drainage. NECK: Supple, trachea midline. No JVD or lymphadenopathy. CARDIOVASCULAR: Regular rate and rhythm without murmurs, gallops, or rubs. RESPIRATORY: Breath sounds equal bilaterally. No accessory muscle use. Lungs sounds are clear to auscultation. GASTROINTESTINAL: Abdomen soft and nondistended. Patient has mild tenderness to palpation throughout the abdomen. MUSCULOSKELETAL: No cyanosis, or edema. BACK: Nontender without obvious deformity. No CVA tenderness. Data Data Last Documented VS Vital Signs Date Time Temp Pulse Resp B/P (MAP) Pulse Ox O2 Delivery O2 Flow Rate FiO2 02/27/17 13:13 Room Air 02/27/17 12:28 98.4 59 14 96 Orders Orders Complete Blood Count With Diff (02/27/17 13:00) Comprehensive Metabolic Panel (02/27/17 13:00) Lipase (02/27/17 13:00) Prothrombin Time / Inr (Pt) (02/27/17 13:00) Act Partial Throm Time (Ptt) (02/27/17 13:00) Urinalysis - C+S If Indicated (02/27/17 13:00) Ct Abd/Pel W Iv Contrast(Rout) (02/27/17 13:00) Iv Access Insert/Monitor (02/27/17 13:00) Ecg Monitoring (02/27/17 13:00) Oximetry (02/27/17 13:00) Ondansetron Inj (Zofran Inj) (02/27/17 13:00) Sodium Chloride 0.9% Flush (Ns Flush) (02/27/17 13:00) Electrocardiogram (02/27/17 13:00) Morphine Inj (Morphine Inj) (02/27/17 13:00) Iohexol 350 Inj (Omnipaque 350 Inj) (02/27/17 15:43) Pantoprazole Inj (Protonix Inj) (02/27/17 17:15) Labs Laboratory Tests Test 02/27/17 13:15 02/27/17 13:20 White Blood Count 16.3 TH/MM3 Red Blood Count 4.15 MIL/MM3 Hemoglobin 13.6 GM/DL Hematocrit 39.7 % Mean Corpuscular Volume 95.7 FL Mean Corpuscular Hemoglobin 32.8 PG Mean Corpuscular Hemoglobin Concent 34.2 % Red Cell Distribution Width 13.1 % Platelet Count 253 TH/MM3 Mean Platelet Volume 8.7 FL Neutrophils (%) (Auto) 84.3 % Lymphocytes (%) (Auto) 7.9 % Monocytes (%) (Auto) 7.2 % Eosinophils (%) (Auto) 0.4 % Basophils (%) (Auto) 0.2 % Neutrophils # (Auto) 13.7 TH/MM3 Lymphocytes # (Auto) 1.3 TH/MM3 Monocytes # (Auto) 1.2 TH/MM3 Eosinophils # (Auto) 0.1 TH/MM3 Basophils # (Auto) 0.0 TH/MM3 CBC Comment DIFF FINAL Differential Comment Prothrombin Time 11.3 SEC Prothromb Time International Ratio 1.0 RATIO Activated Partial Thromboplast Time 32.7 SEC Blood Urea Nitrogen 16 MG/DL Creatinine 0.66 MG/DL Random Glucose 92 MG/DL Total Protein 6.9 GM/DL Albumin 3.2 GM/DL Calcium Level 8.3 MG/DL Alkaline Phosphatase 53 U/L Aspartate Amino Transf (AST/SGOT) 9 U/L Alanine Aminotransferase (ALT/SGPT) 21 U/L Total Bilirubin 0.4 MG/DL Sodium Level 138 MEQ/L Potassium Level 3.6 MEQ/L Chloride Level 102 MEQ/L Carbon Dioxide Level 27.8 MEQ/L Anion Gap 8 MEQ/L Estimat Glomerular Filtration Rate 119 ML/MIN Lipase 180 U/L Urine Color YELLOW Urine Turbidity CLEAR Urine pH 5.0 Urine Specific [place] 1.009 Urine Protein NEG mg/dL Urine Glucose (UA) NEG mg/dL Urine Ketones NEG mg/dL Urine Occult Blood TRACE Urine Nitrite NEG Urine Bilirubin NEG Urine Urobilinogen LESS THAN 2.0 MG/DL Urine Leukocyte Esterase NEG Urine RBC LESS THAN 1 /hpf Urine Hyaline Casts 3 /lpf Urine Mucus FEW /lpf Microscopic Urinalysis Comment CULT NOT INDICATED MDM Medical Decision Making Medical Screen Exam Complete: Yes Emergency Medical Condition: Yes Medical Record Reviewed: Yes Interpretation(s) Last Impressions Abdomen/Pelvis CT 02/27/17 1300 Signed Impressions: Service Date/Time: Monday, February 27, 2017 15:26 - CONCLUSION: 1. Stranding surrounding the SMA between the duodenum and pancreas. The duodenum and pancreas are otherwise grossly unremarkable by CT although there is likely reactive mild proximal jejunal prominence. Differential considerations include duodenitis versus mild early pancreatitis. Clinical correlation is recommended. 2. Ancillary findings include sigmoid diverticulosis, partially imaged left SFA stent, and bilateral iliac vein stents. Yakov Hewitt MD Differential Diagnosis muscle strain vs. diverticulitis vs. pancreatitis vs. UTI vs. gastroenteritis vs. prostate CA metastasis Narrative Course 71 year old male presents to the emergency department for evaluation of abdominal pain x 4 days. Patient has significant cardiac history, recently diagnosed with prostate CA. EKG, CBC, CMP, Lipase, UA are ordered and pending. CT abdomen/pelvis with IV contrast are ordered and pending. Patient is given Morphine 2 mg IV, Zofran 4 mg IV. EKG shows sinus bradycardia, HR 56, LBBB, no acute changes. CBC shows leukocytosis 16.3, neutrophilia 84.3. CMP shows no acute abnormality. Lipase is 180. PT/INR is 11.3/1.0. PTT is 32.7. UA shows trace occult blood, no evidence of acute infection. CT abdomen/pelvis with IV contrast shows 1. Stranding surrounding the SMA between the duodenum and pancreas. The duodenum and pancreas are otherwise grossly unremarkable by CT although there is likely reactive mild proximal jejunal prominence. Differential considerations include duodenitis versus mild early pancreatitis. Clinical correlation is recommended; 2. Ancillary findings include sigmoid diverticulosis, partially imaged left SFA stent, and bilateral iliac vein stents. Discussed the findings my attending physician, Dr. Figueroa. Patient has normal lipase of 180. Most likely duodenitis, possible muscle strain as well. Patient is given Protonix 40 mg IV in the emergency department. I will discharge him with a prescription for Protonix. I instructed him to the patient take Tylenol [id number] as needed. He is complaining of constipation and I do not believe that narcotics would be beneficial in his case. He is to follow-up with a primary care physician. He is to return here for any acute worsening of symptoms. I instructed him to avoid NSAIDs. The patient was discharged in stable condition with instructions, including return instructions and follow up instructions. Diagnosis Primary Impression: Duodenitis Referrals: Primary Care Physician 2 days Patient Instructions: Duodenitis (ED), General Instructions Additional Instructions: Take Protonix daily as directed. [id number] Tylenol as needed for pain. Follow-up with your primary care physician. Return to the emergency department for any acute worsening of symptoms. Med/Other Pt SpecificInfo: Prescription(s) given Scripts Pantoprazole (Protonix) 40 Mg Tab 40 MG PO DAILY for Reflux, #30 TAB 0 Refills Prov: Lou Azevedo 02/27/17 Disposition: 01 DISCHARGE HOME Condition: Stable Lou Azevedo Feb 27, 2017 13:10
[2017-02-27 13:57] LABS: AUTOMATED NEUTROPHIL # 13.7 TH/MM3 (1.8-7.7); BASOPHIL % 0.2 % (0.0-2.0); EOSINOPHIL # 0.1 TH/MM3 (0-0.4); EOSINOPHIL % 0.4 % (0.0-4.0); HEMATOCRIT 39.7 % (39.0-51.0); HEMO FLAGS DIFF FINAL; LYMPH % 7.9 % (9.0-44.0); LYMPHOCYTE # 1.3 TH/MM3 (1.0-4.8); MEAN CELL VOLUME 95.7 FL (80.0-100.0); MEAN CORPUSCULAR HEMOGLOBIN 32.8 PG (27.0-34.0); MEAN CORPUSCULAR HGB CONC 34.2 % (32.0-36.0); MONO % 7.2 % (0.0-8.0); NEUT % 84.3 % (16.0-70.0); PLATELET COUNT 253 TH/MM3 (150-450); RED BLOOD COUNT 4.15 MIL/MM3 (4.50-5.90); RED CELL DISTRIBUTION WIDTH 13.1 % (11.6-17.2); WHITE BLOOD COUNT 16.3 TH/MM3 (4.0-11.0)
[2017-02-27 14:01] LABS: BLOOD, URINE TRACE (NEG); COMMENT (UR) CULT NOT INDICATED; CULTURE IF INDICATED CULT NOT INDICATED; GLUCOSE,URINE NEG (NEG); HYALINE CAST, URINE 3 /lpf (RARE); KETONE, URINE NEG (NEG); MUCUS URINE FEW /lpf (OCC); NITRITE,URINE NEG (NEG); URINE COLOR YELLOW (YELLW/STRAW)
[2017-02-27 14:06] LABS: APTT (PATIENT) 32.7 SEC (24.3-30.1); PROTHROMBIN TIME - PATIENT 11.3 SEC (9.8-11.6)
[2017-02-27 14:15] LABS: ALT (GPT) 21 U/L (12-78); ANION GAP 8 MEQ/L (5-15); AST (GOT) 9 U/L (15-37); BICARBONATE 27.8 MEQ/L (21.0-32.0); BLOOD UREA NITROGEN 16 MG/DL (7-18); CHLORIDE 102 MEQ/L (98-107); GLOMERULAR FILTRATION RATE 119 ML/MIN (>89); POTASSIUM 3.6 MEQ/L (3.5-5.1); SODIUM (NA) 138 MEQ/L (136-145)
[2017-02-27 14:18] LABS: ALKALINE PHOSPHATASE 53 U/L (45-117); TOTAL BILIRUBIN ADULT 0.4 MG/DL (0.2-1.0)
[2017-02-27] MEDS ORDERED: IOHEXOL 350 MG/ML 10 ML VIAL (for RAD DIAG) IVCONTRAST ONE (15:43)
--- NOTE | 2017-02-27 16:17 | RADRPT ---
EXAM DATE/TIME: 02/27/2017 15:26 [place] COMPARISON: No previous studies available for comparison. INDICATIONS : Lower abdomen pain for three days. IV CONTRAST: 99 cc Omnipaque 350 (iohexol) IV ORAL CONTRAST: No oral contrast ingested. RADIATION DOSE: 13.02 CTDIvol (mGy) MEDICAL HISTORY : Congestive heart failure. Hypertension. SURGICAL HISTORY : AV shunt ENCOUNTER: Initial ACUITY: 3 days PAIN SCALE: 4/10 LOCATION: Bilateral lower quadrant TECHNIQUE: Volumetric scanning of the abdomen and pelvis was performed. Using automated exposure control and ad justment of the mA and/or kV according to patient size, radiation dose was kept as low as reasonably achievable to obtain optimal diagnostic quality images. DICOM format image data is available electro nically for review and comparison. FINDINGS: LOWER LUNGS: The visualized lower lungs are clear. LIVER: Small subcentimeter hypodensity in the right lobe of the liver which is too small to characterize. Li christiana is otherwise unremarkable. SPLEEN: Normal size without lesion. PANCREAS: Mesenteric stranding is noted surrounding the SMA between the duodenum and pancreas. The pancreas is otherwise unremarkable demonstrating uniform enhancement without evidence for calcifications or fluid collections. KIDNEYS: Normal in size and shape. There is no mass, stone or hydronephrosis. ADRENAL GLANDS: Within normal limits. VASCULAR: Moderate atherosclerotic calcifications of the infrarenal abdominal aorta. Partially imaged left SFA stent. Bilateral iliac vein stents extending to the junction of the IVC. BOWEL/MESENTERY: The third and fourth portion of the duodenum are grossly unremarkable although again abut the region of stranding. Slight prominence of the proximal jejunum likely reactive to the inflammatory change. M ild sigmoid diverticulosis. Bowel is otherwise unremarkable without evidence for obstruction. ABDOMINAL WALL: Within normal limits. RETROPERITONEUM: There is no lymphadenopathy. BLADDER: No wall thickening or mass. REPRODUCTIVE: Within normal limits. INGUINAL: There is no lymphadenopathy or hernia. MUSCULOSKELETAL: Within normal limits for patient age. CONCLUSION: 1. Stranding surrounding the SMA between the duodenum and pancreas. The duodenum and pancreas are oth erwise grossly unremarkable by CT although there is likely reactive mild proximal jejunal prominence. Differential considerations include duodenitis versus mild early pancreatitis. Clinical correlation is recommended. 2. Ancillary findings include sigmoid diverticulosis, partially imaged left SFA stent, and bilateral iliac vein stents. Yakov Hewitt MD on February 27, 2017 at 16:08 Board Certified Radiologist. This report was verified electronically.
[2017-02-27] MEDS ORDERED: PROT40TA PO (17:15)
[2017-02-27] MEDS ORDERED: PANTOPRAZOLE SODIUM 40 MG VIAL IV PUSH ONE (17:15)
[2017-02-27 17:17] VITALS: BP 159/74; PULSE 58; RESP 16; O2SAT 97
--- NOTE | 2017-02-28 12:58 | EKG ---
Date Performed: 02/27/2017 Time Performed: 13:45:45 PTAGE: 71 years EKG: SINUS BRADYCARDIA LEFT BUNDLE BRANCH BLOCK ABNORMAL ECG PREVIOUS TRACING : 07/17/2016 06.14 No significant change from previous tracing noted. DOCTOR: Sukhwnider Chan Interpretating Date/Time 02/28/2017 12:56:57
== END 2017-02-27 17:38 | disposition home or self-care (01) ==
LOC: NEPC 12:26
DX: K29.80 Duodenitis without bleeding (principal); K59.00 Constipation, unspecified; I73.9 Peripheral vascular disease, unspecified; I48.91 Unspecified atrial fibrillation; E78.00 Pure hypercholesterolemia, unspecified; I50.9 Heart failure, unspecified; I11.0 Hypertensive heart disease with heart failure; I25.10 Atherosclerotic heart disease of native coronary artery without angina pectoris; E11.9 Type 2 diabetes mellitus without complications
CPT/HCPCS: 74177; 80053; 81001; 83690; 85025; 85610; 85730; 93005; 96374; 96375; 99285; C9113; J2270; J2405; Q9967